=== PATIENT | male | born 1950 | race Caucasian/White ===

== ENCOUNTER 2020-04-11 12:54 | Inpatient (IN) | payer MEDICARE, MEDICAID ==
[~2020-04-11] VITALS: Ht 175.3 cm; Wt 100.4 kg
[2020-04-11] MEDS ORDERED: dexAMETHasone 10mg/ml Inj IV ONE (13:00)
--- NOTE | 2020-04-11 13:14 | Emergency Room Report ---
History of Present Illness General Chief Complaint: Dyspnea/Respdistress Source: Patient (German Lino MD) Present Illness HPI Disclaimer: Please note that this report is being documented using DRAGON technology. This can lead to erroneous entry secondary to incorrect interpretation by the dictating instrument. HPI: 70-year-old male presents for evaluation of shortness of breath from nursing facility. Recently diagnosed with COVID-19 on 04/05. Reportedly hypoxic in the mid 80s. Patient notes increased work of breathing, shortness of breath and cough. No fever reported. He does not have any advanced directives in place but states he does not want intubation until absolutely necessary and would like it discussed with him prior. Currently he is against intubation. He has a history of CAD status post stents, strokes, weakness. 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 EOMI. Cardiovascular: Tachycardia. S1 and S2 normal. No murmur appreciated Resp: Increased work of breathing. Accessory muscle use. 15 L nonrebreather Abdomen: Abdomen is soft, nondistended. Nontender Skin: Intact. No abrasions, laceration or rash over the exposed skin MSK: Normal tone and bulk. Moving all extremities. No obvious deformity. Neuro: Awake and alert. Mentating appropriately. GCS 15 (German Lino MD) Procedures Critical Care Time Critical Care Time Given the critical condition in which the patient arrived, the patient was immediately assessed by myself and the nurse, and cardiac monitoring initiated due to the potential for rapid decompensation of the patient's clinical condition. During the course of the patient's stay, I spent a considerable amount of time at the bedside performing serial re-evaluations of the patient's hemodynamic and clinical status because of the recognized potential threat to life or limb in this condition. I then had a chance to review not only all of the available current laboratory and radiographic studies obtained today, but I also reviewed old records available to me at the time. Additionally, any ancillary information available including education and training manager records were reviewed. Sequential vital signs were obtained. Critical Care time of 33 minutes was performed exclusive of billable procedures. (Dank Lantigua MD) Medical Decision Making Diagnostic Impression: Primary Impression: COVID-19 Additional Impressions: Respiratory failure Qualified Codes: J96.01 - Acute respiratory failure with hypoxia; J96.02 - Acute respiratory failure with hypercapnia MORIAH (acute kidney injury) ER Course This a 70-year-old male with history of CAD and prior stroke presenting from senior care facility for shortness of breath. Recently diagnosed with COVID -19. He is no longer hypoxic on 15 L nonrebreather but has accessory muscle use and increased work of breathing. I discussed intubation with patient however at this point he is adamantly refusing stating he would reevaluate if his condition deteriorated. Ordered broad labs including blood cultures, ABG, chest x-ray. The patient require admission. (German Lino MD) ER Course In short 70-year-old male presents in respiratory distress patient was brought in by EMS from snf, patient tachypneic, short of breath patient does not want intubation at this time, will start high flow oxygen and titrate to an SaO2 greater than 94. We will start Levaquin for pneumonia, patient has anaphylaxis to penicillins. Patient most likely with COVID pneumonia Decadron was given by previous doctor. Plan for admission and treatment Patient admitted to Dr. Chamorro in step down Laboratory Tests Test 04/11/20 13:12 04/11/20 13:20 Arterial Blood pH 7.298 (7.350-7.450) Arterial Blood Partial Pressure CO2 29.4 mmHg (35.0-45.0) L Arterial Blood Partial Pressure O2 79.6 mmHg (75.0-100.0) Arterial Blood HCO3 14.1 mmol/L (22.0-26.0) *L Arterial Blood Oxygen Saturation 94.1 % (95-100) L Arterial Blood Base Excess -10.8 (-2-2) *L Eliot Test Positive White Blood Count 6.2 K/UL (4.8-10.8) Red Blood Count 4.95 M/UL (4.70-6.10) Hemoglobin 15.2 G/DL (14.2-18.0) Hematocrit 46.8 % (42.0-52.0) Mean Corpuscular Volume 94 FL (80-99) Mean Corpuscular Hemoglobin 30.6 PG (27.0-31.0) Mean Corpuscular Hemoglobin Concent 32.4 G/DL (32.0-36.0) Red Cell Distribution Width 13.4 % (11.6-14.8) Platelet Count 117 K/UL (150-450) L Mean Platelet Volume 7.5 FL (6.5-10.1) Neutrophils (%) (Auto) % (45.0-75.0) Lymphocytes (%) (Auto) % (20.0-45.0) Monocytes (%) (Auto) % (1.0-10.0) Eosinophils (%) (Auto) % (0.0-3.0) Basophils (%) (Auto) % (0.0-2.0) Differential Total Cells Counted 100 Neutrophils % (Manual) 54 % (45-75) Lymphocytes % (Manual) 11 % (20-45) L Monocytes % (Manual) 24 % (1-10) H Eosinophils % (Manual) 1 % (0-3) Basophils % (Manual) 0 % (0-2) Band Neutrophils 10 % (0-8) H Platelet Estimate Decreased L Platelet Morphology Normal Red Blood Cell Morphology Normal Prothrombin Time 13.0 SEC (9.30-11.50) H Prothrombin Time INR 1.2 (0.9-1.1) H Activated Partial Thromboplast Time 27 SEC (23-33) D-Dimer 4.24 mg/L FEU (0.00-0.49) H Sodium Level 131 MMOL/L (136-145) L Potassium Level 5.0 MMOL/L (3.5-5.1) Chloride Level 91 MMOL/L (98-107) L Carbon Dioxide Level 17 MMOL/L (21-32) L Anion Gap 23 mmol/L (5-15) H Blood Urea Nitrogen 39 mg/dL (7-18) H Creatinine 1.3 MG/DL (0.55-1.30) Estimated Glomerular Filtration Rate 54.7 mL/min (>60) Glucose Level 408 MG/DL (74-106) H Lactic Acid Level 2.70 mmol/L (0.4-2.0) H Uric Acid 6.3 MG/DL (2.6-7.2) Calcium Level 8.8 MG/DL (8.5-10.1) Ferritin 476 NG/ML (8-388) H Total Bilirubin 0.9 MG/DL (0.2-1.0) Aspartate Amino Transferase (AST) 56 U/L (15-37) H Alanine Aminotransferase (ALT) 49 U/L (12-78) Alkaline Phosphatase 51 U/L (46-116) Lactate Dehydrogenase 595 U/L (81-234) H Total Creatine Kinase 337 U/L (26-308) H Creatine Kinase MB 3.0 NG/ML (0.0-3.6) Creatine Kinase MB Relative Index 0.8 Troponin I 0.000 ng/mL (0.000-0.056) C-Reactive Protein, Quantitative 41.5 mg/dL (0.00-0.90) H Total Protein 8.0 G/DL (6.4-8.2) Albumin 3.5 G/DL (3.4-5.0) Globulin 4.5 g/dL Albumin/Globulin Ratio 0.8 (1.0-2.7) L Microbiology Date/Time Source Procedure Growth Status 04/11/20 14:06 Nasopharynx SARS-CoV-2 RdRp Gene Assay - Final Complete (Dank Lantigua MD) EKG Diagnostic Results EKG Time: 13:51 EP Interpretation: Sinus tachycardia, rate 126, QTc 451, left axis deviation no acute ST eleva (Dank Lantigua MD) Rhythm Strip Diag. Results Rhythm Strip Time: 13:51 EP Interpretation: yes Rate: 126 Rhythm: other - Sinus tachycardia (Dank Lantigua MD) Chest X-Ray Diagnostic Results Chest X-Ray Diagnostic Results : Chest X-Ray Ordered: Yes # of Views/Limited/Complete: 1 View Indication: Shortness of Breath EP Interpretation: Yes Interpretation: other - Bilateral opacities Impression: Other - Bilateral opacities Electronically Signed by: Dank Lantigua MD (Dank Lantigua MD) Last Vital Signs Date Time Temp Pulse Resp B/P (MAP) Pulse Ox O2 Delivery O2 Flow Rate FiO2 04/11/20 12:41 99.1 130 22 126/73 (90) 7 Non-Rebreather 15.0 (German Lino MD) Disposition: ADMITTED INPATIENT Condition: Critical German Lino MD Apr 11, 2020 13:14 Dank Lantigua MD Apr 11, 2020 13:55
[2020-04-11] MEDS ORDERED: METOCLOPRAMIDE H5 M1 ORAL (13:24)
[2020-04-11] MEDS ORDERED: MELOXICAM7.5 MG PO (13:24)
[2020-04-11] MEDS ORDERED: BENADRYL25 MG ORAL (13:24)
[2020-04-11] MEDS ORDERED: ASPIR 8181 MG ORAL (13:24)
[2020-04-11] MEDS ORDERED: TRAMADOL HCL50 MG ORAL (13:24)
[2020-04-11] MEDS ORDERED: MAG-OXIDE400 M1 PO (13:24)
[2020-04-11] MEDS ORDERED: TRAZODONE HCL150 MG ORAL (13:24)
[2020-04-11] MEDS ORDERED: FLOMAX0.4 MG ORAL (13:24)
[2020-04-11] MEDS ORDERED: TUMS300 MG PO (13:24)
[2020-04-11] MEDS ORDERED: LOPERAMIDE2 MG PO (13:24)
[2020-04-11] MEDS ORDERED: ACETAMINOPHEN500 M3 ORAL (13:24)
[2020-04-11] MEDS ORDERED: FLONASE ALLERG9.9 ML NS (13:24)
[2020-04-11] MEDS ORDERED: AMITIZA24 MCG ORAL (13:24)
[2020-04-11] MEDS ORDERED: NOVOLIN R100 UNIT/1 SUBQ (13:24)
[2020-04-11] MEDS ORDERED: METHOTREXATE2.5 MG PO (13:24)
[2020-04-11] MEDS ORDERED: ZETIA10 MG ORAL (13:24)
[2020-04-11] MEDS ORDERED: LISINOPRIL5 MG ORAL (13:24)
[2020-04-11] MEDS ORDERED: MYRBETRIQ50 MG PO (13:24)
[2020-04-11] MEDS ORDERED: FENOFIBRATE48 MG ORAL (13:24)
[2020-04-11] MEDS ORDERED: GABAPENTIN100 MG ORAL (13:24)
[2020-04-11] MEDS ORDERED: LORATADINE10 M1 PO (13:24)
[2020-04-11] MEDS ORDERED: ERGOCALCIFEROL1 GM MC (13:24)
[2020-04-11 13:34] VITALS: BP 125/76
[2020-04-11] MEDS ORDERED: Albuterol/Ipratropium 3ml neb HHN PRN (14:00)
[2020-04-11] MEDS ORDERED: cefTRIAXone 1 GM in D5W 55 ML IVPB SCH (14:00)
[2020-04-11] MEDS ORDERED: Miralax 17gm pkt ORAL PRN (14:00)
[2020-04-11 14:06] LABS: HEMATOCRIT 46.8 % (42.0-52.0); HEMOGLOBIN 15.2 G/DL (14.2-18.0); MEAN CORPUSCULAR VOLUME 94 FL (80-99); PLATELET COUNT 117 K/UL (150-450); RED BLOOD COUNT 4.95 M/UL (4.70-6.10); RED CELL DISTRIBUTION WIDTH 13.4 % (11.6-14.8); WHITE BLOOD COUNT 6.2 K/UL (4.8-10.8)
[2020-04-11 14:15] LABS: INR 1.2 (0.9-1.1)
[2020-04-11 14:20] VITALS: BP 130/80
[2020-04-11 14:29] LABS: ANION GAP 23 mmol/L (5-15); BLOOD UREA NITROGEN 39 mg/dL (7-18); CALCIUM 8.8 MG/DL (8.5-10.1); CARBON DIOXIDE 17 MMOL/L (21-32); CHLORIDE 91 MMOL/L (98-107); CREATININE 1.3 MG/DL (0.55-1.30); SODIUM 131 MMOL/L (136-145)
--- NOTE | 2020-04-11 14:32 | Diagnostic Imaging Report ---
Procedure: XRAY Chest 1v Reason for study: Reason For Exam: SOB Comparison films: None. FINDINGS: Radiograph is underpenetrated. There is bilateral infiltrates right greater than left. Cardiac and mediastinal silhouette are within normal limits. No significant effusion seen. The bony thorax appear unremarkable. IMPRESSION: Bilateral infiltrates.
[2020-04-11 14:38] LABS: ALANINE AMINOTRANSFERASE 49 U/L (12-78); ALBUMIN 3.5 G/DL (3.4-5.0); ALBUMIN/GLOBULIN RATIO 0.8 (1.0-2.7); ALKALINE PHOSPHATASE 51 U/L (46-116); ASPARTATE AMINO TRANSFERASE 56 U/L (15-37); BILIRUBIN,TOTAL 0.9 MG/DL (0.2-1.0); CREATINE KINASE 337 U/L (26-308); FERRITIN 476 NG/ML (8-388)
[2020-04-11 16:00] VITALS: BP 109/59
[2020-04-11] MEDS ORDERED: Azithromycin 250 MG in D5W 275 ML IV SCH (18:00)
[2020-04-11] MEDS: NovoLOG Insulin Flexpen SUBQ SCH ×3 (18:45→22:25)
[2020-04-11 20:00] VITALS: BP 118/43
[2020-04-11] MEDS ORDERED: Heparin 5000 units/ml inj SUBQ SCH (21:00)
[2020-04-11] MEDS: guaiFENesin 100mg/5ml Liq ud ORAL PRN (22:24)
[2020-04-11] MEDS: Flonase Nasal Inhaler 16gm NASAL SCH (22:24)
[2020-04-12] VITALS (26 sets, daily range): BP systolic 101–215; BP diastolic 4–115
[2020-04-12] MEDS: NovoLOG Insulin Flexpen SUBQ SCH ×5 (01:00→22:36)
[2020-04-12] MEDS: guaiFENesin 100mg/5ml Liq ud ORAL PRN (03:42)
[2020-04-12 04:40] LABS: HEMATOCRIT 41.7 % (42.0-52.0); HEMOGLOBIN 13.8 G/DL (14.2-18.0); MEAN CORPUSCULAR VOLUME 93 FL (80-99); PLATELET COUNT 134 K/UL (150-450); RED BLOOD COUNT 4.47 M/UL (4.70-6.10); RED CELL DISTRIBUTION WIDTH 13.2 % (11.6-14.8); WHITE BLOOD COUNT 11.8 K/UL (4.8-10.8)
[2020-04-12 04:53] LABS: ALBUMIN 2.9 G/DL (3.4-5.0); ANION GAP 14 mmol/L (5-15); BLOOD UREA NITROGEN 51 mg/dL (7-18); CALCIUM 8.3 MG/DL (8.5-10.1); CARBON DIOXIDE 24 MMOL/L (21-32); CHLORIDE 96 MMOL/L (98-107); CREATININE 1.6 MG/DL (0.55-1.30); PHOSPHORUS 1.4 MG/DL (2.5-4.9); POTASSIUM 4.5 MMOL/L (3.5-5.1); SODIUM 134 MMOL/L (136-145)
[2020-04-12] MEDS ORDERED: NovoLOG Insulin Flexpen SUBQ SCH (06:30)
[2020-04-12] MEDS: Flonase Nasal Inhaler 16gm NASAL SCH (08:34)
[2020-04-12] MEDS ORDERED: Heparin 5000 units/ml inj SUBQ SCH (09:00)
--- NOTE | 2020-04-12 11:53 | History and Physical ---
History of Present Illness General Date patient seen: Apr 12, 2020 Reason for Hospitalization: Dyspnea/Respdistress Present Illness HPI 70-year-old male with hx of diabetes Mellitus, HtN, CVA, CAD, s/p stent, COVID positive [facility] shortness of breath. Patient was hypoxic in the mid 80s and had increased work of breathing , shortness of breath and cough. No fever reported. Allergies: Coded Allergies: CODEINE (Verified Allergy, Unknown, 04/11/20) PENICILLINS (Verified Allergy, Unknown, 04/11/20) Uncoded Allergies: SULFA (Allergy, Unknown, 04/11/20) COVID-19 Screening Contact w/high risk pt: Yes Experienced COVID-19 symptoms?: Yes COVID-19 symptoms experienced: Shortness of Breath Medication History Scheduled Acetaminophen* (Acetaminophen Extra Strength*), 1,000 MG ORAL Q4H, (Reported) Aspirin* (Aspir 81*), 81 MG ORAL DAILY, (Reported) Ezetimibe (Zetia*), 10 MG ORAL DAILY, (Reported) Fenofibrate Nanocrystallized (Fenofibrate), 48 MG ORAL DAILY, (Reported) Gabapentin* (Gabapentin*), 600 MG ORAL THREE TIMES A DAY, (Reported) Insulin Regular, Human* (Novolin R*), 0 SUBQ .SLIDING SCALE, (Reported) Lisinopril (Lisinopril*), 5 MG ORAL DAILY, (Reported) Lubiprostone (Amitiza*), 8 MCG ORAL EVERY 12 HOURS, (Reported) Magnesium Oxide (Mag-Oxide), 400 MG PO DAILY, (Reported) Meloxicam* (Meloxicam*), 7.5 MG PO DAILY, (Reported) Metoclopramide Hcl* (Metoclopramide Hcl*), 25 MG ORAL EVERY 6 HOURS, (Reported) Tamsulosin HCl (Flomax), 0.4 MG ORAL DAILY, (Reported) Trazodone* (Trazodone*), 100 MG ORAL BEDTIME, (Reported) Scheduled PRN Diphenhydramine Hcl* (Benadryl*), 25 MG ORAL Q6H PRN for Itching, (Reported) Tramadol Hcl* (Ultram*), 50 MG ORAL Q4H PRN for For Pain, (Reported) Miscellaneous Medications Calcium Carbonate (Tums), 500 MG PO, (Reported) Ergocalciferol (Vitamin D2) (Ergocalciferol), 50,000 UNITS MC, (Reported) Fluticasone Propionate (Flonase Allergy Relief), 9.9 ML NS, (Reported) Loperamide Hcl (Loperamide), 2 MG PO, (Reported) Loratadine (Loratadine), 10 MG PO, (Reported) Methotrexate Sodium* (Methotrexate*), 2.5 MG PO, (Reported) Mirabegron (Myrbetriq), 50 MG PO, (Reported) Patient History Healthcare decision maker Resuscitation status Advanced Directive on File Past Medical/Surgical History Past Medical/Surgical History: (1) Hx of heart artery stent (2) History of CVA (cerebrovascular accident) (3) History of hypertension (4) Diabetes mellitus Review of Systems All Other Systems: negative except mentioned in HPI Physical Exam General Appearance: WD/WN, alert Lines, tubes and drains: peripheral HEENT: normocephalic, atraumatic, anicteric Neck: non-tender, normal alignment, supple Respiratory/Chest: chest wall non-tender, rhonchi - left, rhonchi - right Cardiovascular/Chest: normal peripheral pulses Abdomen: normal bowel sounds, non tender Genitourinary/Rectal: normal genital exam Extremities: normal range of motion Neurologic: mental retardation nurse II-XII grossly normal Last 24 Hour Vital Signs Date Time Temp Pulse Resp B/P (MAP) Pulse Ox O2 Delivery O2 Flow Rate FiO2 04/12/20 11:18 92 High Flow 60.0 100 04/12/20 08:00 60.0 100 04/12/20 08:00 Nasal Cannula 15.0 04/12/20 08:00 97.5 112 26 147/82 (103) 91 04/12/20 07:47 132 04/12/20 06:30 81 High Flow 60.0 100 04/12/20 04:00 60.0 100 04/12/20 04:00 Nasal Cannula 15.0 04/12/20 04:00 97.6 112 30 159/70 (99) 90 04/12/20 03:34 109 04/12/20 03:16 90 High Flow 60.0 100 04/12/20 00:00 97.5 108 30 132/54 (80) 90 04/12/20 00:00 109 04/12/20 00:00 Nasal Cannula 15.0 04/11/20 23:06 89 High Flow 60.0 100 04/11/20 20:00 98.0 124 30 118/43 (68) 90 04/11/20 20:00 60.0 100 04/11/20 20:00 Nasal Cannula 15.0 04/11/20 19:38 121 04/11/20 19:34 90 High Flow 60.0 100 04/11/20 16:00 60.0 100 04/11/20 16:00 97.1 112 22 109/59 (76) 94 04/11/20 16:00 126 04/11/20 15:49 Cool Aerosol 04/11/20 15:42 92 High Flow 60.0 100 04/11/20 15:40 99.5 116 25 126/79 95 100 04/11/20 14:20 99.8 118 22 130/80 95 Non-Rebreather 100 04/11/20 14:17 92 High Flow 100 04/11/20 13:34 99.1 130 23 125/76 95 Non-Rebreather 15.0 04/11/20 13:34 130 23 Non-Rebreather 15.0 95 04/11/20 12:41 99.1 130 22 126/73 (90) 7 Non-Rebreather 15.0 Intake and Output 04/11/20 04/12/20 19:00 07:00 Intake Total 1100 ml 2155 ml Balance 1100 ml 2155 ml Intake Oral 260 ml IV Total 1100 ml 1895 ml # Voids 1 2 # Bowel Movements 2 Laboratory Tests Test 04/11/20 13:12 04/11/20 13:20 04/11/20 17:48 04/11/20 20:17 Arterial Blood pH 7.298 (7.350-7.450) Arterial Blood Partial Pressure CO2 29.4 mmHg (35.0-45.0) L Arterial Blood Partial Pressure O2 79.6 mmHg (75.0-100.0) Arterial Blood HCO3 14.1 mmol/L (22.0-26.0) *L Arterial Blood Oxygen Saturation 94.1 % (95-100) L Arterial Blood Base Excess -10.8 (-2-2) *L Eliot Test Positive White Blood Count 6.2 K/UL (4.8-10.8) Red Blood Count 4.95 M/UL (4.70-6.10) Hemoglobin 15.2 G/DL (14.2-18.0) Hematocrit 46.8 % (42.0-52.0) Mean Corpuscular Volume 94 FL (80-99) Mean Corpuscular Hemoglobin 30.6 PG (27.0-31.0) Mean Corpuscular Hemoglobin Concent 32.4 G/DL (32.0-36.0) Red Cell Distribution Width 13.4 % (11.6-14.8) Platelet Count 117 K/UL (150-450) L Mean Platelet Volume 7.5 FL (6.5-10.1) Neutrophils (%) (Auto) % (45.0-75.0) Lymphocytes (%) (Auto) % (20.0-45.0) Monocytes (%) (Auto) % (1.0-10.0) Eosinophils (%) (Auto) % (0.0-3.0) Basophils (%) (Auto) % (0.0-2.0) Differential Total Cells Counted 100 Neutrophils % (Manual) 54 % (45-75) Lymphocytes % (Manual) 11 % (20-45) L Monocytes % (Manual) 24 % (1-10) H Eosinophils % (Manual) 1 % (0-3) Basophils % (Manual) 0 % (0-2) Band Neutrophils 10 % (0-8) H Platelet Estimate Decreased L Platelet Morphology Normal Red Blood Cell Morphology Normal Prothrombin Time 13.0 SEC (9.30-11.50) H Prothromb Time International Ratio 1.2 (0.9-1.1) H Activated Partial Thromboplast Time 27 SEC (23-33) D-Dimer 4.24 mg/L FEU (0.00-0.49) H Sodium Level 131 MMOL/L (136-145) L Potassium Level 5.0 MMOL/L (3.5-5.1) Chloride Level 91 MMOL/L (98-107) L Carbon Dioxide Level 17 MMOL/L (21-32) L Anion Gap 23 mmol/L (5-15) H Blood Urea Nitrogen 39 mg/dL (7-18) H Creatinine 1.3 MG/DL (0.55-1.30) Estimat Glomerular Filtration Rate 54.7 mL/min (>60) Glucose Level 408 MG/DL (74-106) H Lactic Acid Level 2.70 mmol/L (0.4-2.0) H Uric Acid 6.3 MG/DL (2.6-7.2) Calcium Level 8.8 MG/DL (8.5-10.1) Ferritin 476 NG/ML (8-388) H Total Bilirubin 0.9 MG/DL (0.2-1.0) Aspartate Amino Transf (AST/SGOT) 56 U/L (15-37) H Alanine Aminotransferase (ALT/SGPT) 49 U/L (12-78) Alkaline Phosphatase 51 U/L (46-116) Lactate Dehydrogenase 595 U/L (81-234) H Total Creatine Kinase 337 U/L (26-308) H Creatine Kinase MB 3.0 NG/ML (0.0-3.6) Creatine Kinase MB Relative Index 0.8 Troponin I 0.000 ng/mL (0.000-0.056) C-Reactive Protein, Quantitative 41.5 mg/dL (0.00-0.90) H Total Protein 8.0 G/DL (6.4-8.2) Albumin 3.5 G/DL (3.4-5.0) Globulin 4.5 g/dL Albumin/Globulin Ratio 0.8 (1.0-2.7) L POC Whole Blood Glucose 441 MG/DL (74-106) H Pending Test 04/11/20 21:30 04/11/20 22:21 04/11/20 23:46 04/12/20 00:47 Lactic Acid Level 2.00 mmol/L (0.66-2.22) POC Whole Blood Glucose 487 MG/DL (74-106) H Pending 380 MG/DL (74-106) H Test 04/12/20 02:19 04/12/20 03:30 04/12/20 05:27 04/12/20 06:42 POC Whole Blood Glucose Pending 277 MG/DL (74-106) H White Blood Count 11.8 K/UL (4.8-10.8) #H Red Blood Count 4.47 M/UL (4.70-6.10) L Hemoglobin 13.8 G/DL (14.2-18.0) L Hematocrit 41.7 % (42.0-52.0) L Mean Corpuscular Volume 93 FL (80-99) Mean Corpuscular Hemoglobin 30.8 PG (27.0-31.0) Mean Corpuscular Hemoglobin Concent 33.0 G/DL (32.0-36.0) Red Cell Distribution Width 13.2 % (11.6-14.8) Platelet Count 134 K/UL (150-450) L Mean Platelet Volume 7.7 FL (6.5-10.1) Neutrophils (%) (Auto) % (45.0-75.0) Lymphocytes (%) (Auto) % (20.0-45.0) Monocytes (%) (Auto) % (1.0-10.0) Eosinophils (%) (Auto) % (0.0-3.0) Basophils (%) (Auto) % (0.0-2.0) Sodium Level 134 MMOL/L (136-145) L Potassium Level 4.5 MMOL/L (3.5-5.1) Chloride Level 96 MMOL/L (98-107) L Carbon Dioxide Level 24 MMOL/L (21-32) Anion Gap 14 mmol/L (5-15) Blood Urea Nitrogen 51 mg/dL (7-18) H Creatinine 1.6 MG/DL (0.55-1.30) H Estimat Glomerular Filtration Rate 43.1 mL/min (>60) Glucose Level 287 MG/DL (74-106) #H Uric Acid Pending Calcium Level 8.3 MG/DL (8.5-10.1) L Phosphorus Level 1.4 MG/DL (2.5-4.9) L Total Creatine Kinase Pending Albumin 2.9 G/DL (3.4-5.0) L Arterial Blood pH 7.350 (7.350-7.450) Arterial Blood Partial Pressure CO2 37.6 mmHg (35.0-45.0) Arterial Blood Partial Pressure O2 43.2 mmHg (75.0-100.0) Arterial Blood HCO3 20.5 mmol/L (22.0-26.0) L Arterial Blood Oxygen Saturation 80.2 % (95-100) *L Arterial Blood Base Excess -4.4 (-2-2) L Eliot Test Positive Microbiology Date/Time Source Procedure Growth Status 04/11/20 14:06 Nasopharynx SARS-CoV-2 RdRp Gene Assay - Final Complete 04/11/20 13:56 Rectum Received Height (Feet): 5 Height (Inches): 9.00 Weight (Pounds): 218 Medications Current Medications Medications (Trade) Dose Ordered Sig/Lopez Route PRN Reason Start Time Stop Time Status Last Admin Dose Admin Acetaminophen (Tylenol) 650 mg Q4H PRN ORAL FEVER 04/11/20 14:00 05/11/20 13:59 Albuterol/ Ipratropium (Albuterol/ Ipratropium) 3 ml Q4H PRN HHN Shortness of Breath 04/11/20 14:00 04/16/20 13:59 Aspirin (Ecotrin) 81 mg DAILY ORAL 04/13/20 09:00 05/28/20 08:59 UNV Azithromycin 250 mg/Dextrose 275 ml @ 275 mls/hr Q24HRS IV 04/11/20 18:00 04/16/20 17:59 04/11/20 18:23 Dexamethasone (Decadron) 4 mg DAILY ORAL 04/12/20 09:00 05/12/20 08:59 04/12/20 08:34 Dextrose (Dextrose 50%) 25 ml Q30M PRN IV Hypoglycemia 04/11/20 20:45 07/10/20 20:44 Dextrose (Dextrose 50%) 50 ml Q30M PRN IV Hypoglycemia 04/11/20 20:45 07/10/20 20:44 Fluticasone Propionate (Flonase) 1 spray TWICE A DAY NASAL 04/11/20 22:00 05/11/20 21:59 04/12/20 08:34 Gabapentin (Neurontin) 600 mg THREE TIMES A DAY ORAL 04/12/20 13:00 05/12/20 12:59 UNV Guaifenesin (Robitussin) 100 mg Q4H PRN ORAL For Cough 04/11/20 20:45 07/10/20 20:44 04/12/20 03:42 Heparin Sodium (Porcine) (Heparin 5000 units/ml) 5,000 units EVERY 12 HOURS SUBQ 04/12/20 09:00 05/26/20 20:59 04/12/20 08:34 Insulin Aspart (NovoLOG) BEFORE MEALS AND HS SUBQ 04/12/20 12:00 07/10/20 20:59 Ondansetron HCl (Zofran) 4 mg Q6H PRN IVP Nausea & Vomiting 04/11/20 14:00 05/11/20 13:59 Polyethylene Glycol (Miralax) 17 gm DAILYPRN PRN ORAL Constipation 04/11/20 14:00 05/11/20 13:59 Sodium Chloride 1,000 ml @ 150 mls/hr Q6H40M IV 04/11/20 17:06 05/11/20 17:05 04/12/20 06:11 Sodium Phosphate 30 mm/Sodium Chloride 285 ml @ 47.5 mls/hr ONCE ONCE IV 04/12/20 12:45 04/12/20 18:44 UNV Tamsulosin HCl (Flomax) 0.4 mg DAILY ORAL 04/13/20 09:00 05/13/20 08:59 UNV Trazodone HCl (Desyrel) 100 mg BEDTIME ORAL 04/12/20 21:00 05/12/20 20:59 UNV Assessment/Plan Problem List: (1) Acute respiratory failure ICD Codes: J96.00 - Acute respiratory failure, unspecified whether with hypoxia or hypercapnia SNOMED: 06812344 (2) Pneumonia due to COVID-19 virus ICD Codes: U07.1 - COVID-19; J12.89 - Other viral pneumonia SNOMED: 418678740, 937039062 (3) MORIAH (acute kidney injury) ICD Codes: N17.9 - Acute kidney failure, unspecified SNOMED: 79054944, 0031229 (4) History of hypertension ICD Codes: Z86.79 - Personal history of other diseases of the circulatory system SNOMED: 731166126 (5) History of CVA (cerebrovascular accident) ICD Codes: Z86.73 - Personal history of transient ischemic attack (TIA), and cerebral infarction without residual deficits SNOMED: 982792528 (6) Diabetes mellitus ICD Codes: E11.9 - Type 2 diabetes mellitus without complications SNOMED: 42356482 Assessment/Plan: respiratory isolation respiratory treatment continue High flow titrate fio2 to sat of 92% sliding scale diabetic diet monitor BP echocardiogram CXR reviewed/ CRP >40, follow up the trend Pt needs Decadron and antiviral Deidre Chamorro MD Apr 12, 2020 11:53
[2020-04-12 12:02] LABS: CREATINE KINASE 216 U/L (26-308)
[2020-04-12] MEDS ORDERED: dilTIAZem HCl 25mg/5ml Inj IVP SCH (13:00)
[2020-04-12] MEDS ORDERED: Labetalol 5mg/ml 20ml vial IV PRN ×2 (13:00→19:00)
[2020-04-12] MEDS ORDERED: Tamsulosin 0.4mg cap ORAL SCH (13:00)
[2020-04-12] MEDS ORDERED: Enalaprilat 2.5mg/2ml Inj IV PRN ×2 (13:00→19:00)
--- NOTE | 2020-04-12 13:33 | Consultation ---
History of Present Illness General Date patient seen: Apr 12, 2020 Chief Complaint: Dyspnea/Respdistress Present Illness HPI 70 y/o M with with hx of HTN, Dm2, CAD s/p stent, CVA, recent diagnosis of COVID19 (04/05), [place] resident presented to ED on 04/11 with hypoxia on the mid 80s , increased work of breathing, SOB, cough. Patient was on HF 100%, desaturated and was transferred to ICU. Now on Bipap. ALso developed Afib with RVR Denied fever Allergies: Coded Allergies: CODEINE (Verified Allergy, Unknown, 04/11/20) PENICILLINS (Verified Allergy, Unknown, 04/11/20) Uncoded Allergies: SULFA (Allergy, Unknown, 04/11/20) Medication History Scheduled Acetaminophen* (Acetaminophen Extra Strength*), 1,000 MG ORAL Q4H, (Reported) Aspirin* (Aspir 81*), 81 MG ORAL DAILY, (Reported) Ezetimibe (Zetia*), 10 MG ORAL DAILY, (Reported) Fenofibrate Nanocrystallized (Fenofibrate), 48 MG ORAL DAILY, (Reported) Gabapentin* (Gabapentin*), 600 MG ORAL THREE TIMES A DAY, (Reported) Insulin Regular, Human* (Novolin R*), 0 SUBQ .SLIDING SCALE, (Reported) Lisinopril (Lisinopril*), 5 MG ORAL DAILY, (Reported) Lubiprostone (Amitiza*), 8 MCG ORAL EVERY 12 HOURS, (Reported) Magnesium Oxide (Mag-Oxide), 400 MG PO DAILY, (Reported) Meloxicam* (Meloxicam*), 7.5 MG PO DAILY, (Reported) Metoclopramide Hcl* (Metoclopramide Hcl*), 25 MG ORAL EVERY 6 HOURS, (Reported) Tamsulosin HCl (Flomax), 0.4 MG ORAL DAILY, (Reported) Trazodone* (Trazodone*), 100 MG ORAL BEDTIME, (Reported) Scheduled PRN Diphenhydramine Hcl* (Benadryl*), 25 MG ORAL Q6H PRN for Itching, (Reported) Tramadol Hcl* (Ultram*), 50 MG ORAL Q4H PRN for For Pain, (Reported) Miscellaneous Medications Calcium Carbonate (Tums), 500 MG PO, (Reported) Ergocalciferol (Vitamin D2) (Ergocalciferol), 50,000 UNITS , (Reported) Fluticasone Propionate (Flonase Allergy Relief), 9.9 ML NS, (Reported) Loperamide Hcl (Loperamide), 2 MG PO, (Reported) Loratadine (Loratadine), 10 MG PO, (Reported) Methotrexate Sodium* (Methotrexate*), 2.5 MG PO, (Reported) Mirabegron (Myrbetriq), 50 MG PO, (Reported) Patient History Healthcare decision maker Resuscitation status Advanced Directive on File Patient History Narrative Pmhx: as above Shx: reviewed Fhx: non contributory Review of Systems All Other Systems: negative except mentioned in HPI Physical Exam Physical Exam Narrative General Appearance: WD/WN, alert Lines, tubes and drains: peripheral HEENT: normocephalic, atraumatic, anicteric Neck: non-tender, normal alignment, supple Respiratory/Chest: chest wall non-tender, rhonchi - left, rhonchi - right Cardiovascular/Chest: normal peripheral pulses Abdomen: normal bowel sounds, non tender Extremities: normal range of motion 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 Last 24 Hour Vital Signs Date Time Temp Pulse Resp B/P (MAP) Pulse Ox O2 Delivery O2 Flow Rate FiO2 04/12/20 12:55 180 26 215/115 (148) 83 04/12/20 12:00 119 04/12/20 11:18 92 High Flow 60.0 100 04/12/20 08:00 60.0 100 04/12/20 08:00 Nasal Cannula 15.0 04/12/20 08:00 97.5 112 26 147/82 (103) 91 04/12/20 07:47 132 04/12/20 06:30 81 High Flow 60.0 100 04/12/20 04:00 60.0 100 04/12/20 04:00 Nasal Cannula 15.0 04/12/20 04:00 97.6 112 30 159/70 (99) 90 04/12/20 03:34 109 04/12/20 03:16 90 High Flow 60.0 100 04/12/20 00:00 97.5 108 30 132/54 (80) 90 04/12/20 00:00 109 04/12/20 00:00 Nasal Cannula 15.0 04/11/20 23:06 89 High Flow 60.0 100 04/11/20 20:00 98.0 124 30 118/43 (68) 90 04/11/20 20:00 60.0 100 04/11/20 20:00 Nasal Cannula 15.0 04/11/20 19:38 121 04/11/20 19:34 90 High Flow 60.0 100 04/11/20 16:00 60.0 100 04/11/20 16:00 97.1 112 22 109/59 (76) 94 04/11/20 16:00 126 04/11/20 15:49 Cool Aerosol 04/11/20 15:42 92 High Flow 60.0 100 04/11/20 15:40 99.5 116 25 126/79 95 100 04/11/20 14:20 99.8 118 22 130/80 95 Non-Rebreather 100 04/11/20 14:17 92 High Flow 100 04/11/20 13:34 99.1 130 23 125/76 95 Non-Rebreather 15.0 04/11/20 13:34 130 23 Non-Rebreather 15.0 95 Intake and Output 04/11/20 04/12/20 19:00 07:00 Intake Total 1100 ml 2155 ml Balance 1100 ml 2155 ml Intake Oral 260 ml IV Total 1100 ml 1895 ml # Voids 1 2 # Bowel Movements 2 Laboratory Tests Test 04/11/20 13:12 04/11/20 13:20 04/11/20 17:48 04/11/20 20:17 Arterial Blood pH 7.298 (7.350-7.450) Arterial Blood Partial Pressure CO2 29.4 mmHg (35.0-45.0) L Arterial Blood Partial Pressure O2 79.6 mmHg (75.0-100.0) Arterial Blood HCO3 14.1 mmol/L (22.0-26.0) *L Arterial Blood Oxygen Saturation 94.1 % (95-100) L Arterial Blood Base Excess -10.8 (-2-2) *L Eliot Test Positive White Blood Count 6.2 K/UL (4.8-10.8) Red Blood Count 4.95 M/UL (4.70-6.10) Hemoglobin 15.2 G/DL (14.2-18.0) Hematocrit 46.8 % (42.0-52.0) Mean Corpuscular Volume 94 FL (80-99) Mean Corpuscular Hemoglobin 30.6 PG (27.0-31.0) Mean Corpuscular Hemoglobin Concent 32.4 G/DL (32.0-36.0) Red Cell Distribution Width 13.4 % (11.6-14.8) Platelet Count 117 K/UL (150-450) L Mean Platelet Volume 7.5 FL (6.5-10.1) Neutrophils (%) (Auto) % (45.0-75.0) Lymphocytes (%) (Auto) % (20.0-45.0) Monocytes (%) (Auto) % (1.0-10.0) Eosinophils (%) (Auto) % (0.0-3.0) Basophils (%) (Auto) % (0.0-2.0) Differential Total Cells Counted 100 Neutrophils % (Manual) 54 % (45-75) Lymphocytes % (Manual) 11 % (20-45) L Monocytes % (Manual) 24 % (1-10) H Eosinophils % (Manual) 1 % (0-3) Basophils % (Manual) 0 % (0-2) Band Neutrophils 10 % (0-8) H Platelet Estimate Decreased L Platelet Morphology Normal Red Blood Cell Morphology Normal Prothrombin Time 13.0 SEC (9.30-11.50) H Prothromb Time International Ratio 1.2 (0.9-1.1) H Activated Partial Thromboplast Time 27 SEC (23-33) D-Dimer 4.24 mg/L FEU (0.00-0.49) H Sodium Level 131 MMOL/L (136-145) L Potassium Level 5.0 MMOL/L (3.5-5.1) Chloride Level 91 MMOL/L (98-107) L Carbon Dioxide Level 17 MMOL/L (21-32) L Anion Gap 23 mmol/L (5-15) H Blood Urea Nitrogen 39 mg/dL (7-18) H Creatinine 1.3 MG/DL (0.55-1.30) Estimat Glomerular Filtration Rate 54.7 mL/min (>60) Glucose Level 408 MG/DL (74-106) H Lactic Acid Level 2.70 mmol/L (0.4-2.0) H Uric Acid 6.3 MG/DL (2.6-7.2) Calcium Level 8.8 MG/DL (8.5-10.1) Ferritin 476 NG/ML (8-388) H Total Bilirubin 0.9 MG/DL (0.2-1.0) Aspartate Amino Transf (AST/SGOT) 56 U/L (15-37) H Alanine Aminotransferase (ALT/SGPT) 49 U/L (12-78) Alkaline Phosphatase 51 U/L (46-116) Lactate Dehydrogenase 595 U/L (81-234) H Total Creatine Kinase 337 U/L (26-308) H Creatine Kinase MB 3.0 NG/ML (0.0-3.6) Creatine Kinase MB Relative Index 0.8 Troponin I 0.000 ng/mL (0.000-0.056) C-Reactive Protein, Quantitative 41.5 mg/dL (0.00-0.90) H Total Protein 8.0 G/DL (6.4-8.2) Albumin 3.5 G/DL (3.4-5.0) Globulin 4.5 g/dL Albumin/Globulin Ratio 0.8 (1.0-2.7) L POC Whole Blood Glucose 441 MG/DL (74-106) H Pending Test 04/11/20 21:30 04/11/20 22:21 04/11/20 23:46 04/12/20 00:47 Lactic Acid Level 2.00 mmol/L (0.66-2.22) POC Whole Blood Glucose 487 MG/DL (74-106) H Pending 380 MG/DL (74-106) H Test 04/12/20 02:19 04/12/20 03:30 04/12/20 05:27 04/12/20 06:42 POC Whole Blood Glucose Pending 277 MG/DL (74-106) H White Blood Count 11.8 K/UL (4.8-10.8) #H Red Blood Count 4.47 M/UL (4.70-6.10) L Hemoglobin 13.8 G/DL (14.2-18.0) L Hematocrit 41.7 % (42.0-52.0) L Mean Corpuscular Volume 93 FL (80-99) Mean Corpuscular Hemoglobin 30.8 PG (27.0-31.0) Mean Corpuscular Hemoglobin Concent 33.0 G/DL (32.0-36.0) Red Cell Distribution Width 13.2 % (11.6-14.8) Platelet Count 134 K/UL (150-450) L Mean Platelet Volume 7.7 FL (6.5-10.1) Neutrophils (%) (Auto) % (45.0-75.0) Lymphocytes (%) (Auto) % (20.0-45.0) Monocytes (%) (Auto) % (1.0-10.0) Eosinophils (%) (Auto) % (0.0-3.0) Basophils (%) (Auto) % (0.0-2.0) Sodium Level 134 MMOL/L (136-145) L Potassium Level 4.5 MMOL/L (3.5-5.1) Chloride Level 96 MMOL/L (98-107) L Carbon Dioxide Level 24 MMOL/L (21-32) Anion Gap 14 mmol/L (5-15) Blood Urea Nitrogen 51 mg/dL (7-18) H Creatinine 1.6 MG/DL (0.55-1.30) H Estimat Glomerular Filtration Rate 43.1 mL/min (>60) Glucose Level 287 MG/DL (74-106) #H Uric Acid 7.7 MG/DL (2.6-7.2) H Calcium Level 8.3 MG/DL (8.5-10.1) L Phosphorus Level 1.4 MG/DL (2.5-4.9) L Total Creatine Kinase 216 U/L (26-308) Albumin 2.9 G/DL (3.4-5.0) L Arterial Blood pH 7.350 (7.350-7.450) Arterial Blood Partial Pressure CO2 37.6 mmHg (35.0-45.0) Arterial Blood Partial Pressure O2 43.2 mmHg (75.0-100.0) Arterial Blood HCO3 20.5 mmol/L (22.0-26.0) L Arterial Blood Oxygen Saturation 80.2 % (95-100) *L Arterial Blood Base Excess -4.4 (-2-2) L Eliot Test Positive Test 04/12/20 12:21 POC Whole Blood Glucose 359 MG/DL (74-106) H Microbiology Date/Time Source Procedure Growth Status 04/11/20 14:06 Nasopharynx SARS-CoV-2 RdRp Gene Assay - Final Complete 04/11/20 13:56 Rectum Received Height (Feet): 5 Height (Inches): 9.00 Weight (Pounds): 218 Medications Current Medications Medications (Trade) Dose Ordered Sig/Lopez Route PRN Reason Start Time Stop Time Status Last Admin Dose Admin Acetaminophen (Tylenol) 650 mg Q4H PRN ORAL FEVER 04/11/20 14:00 05/11/20 13:59 Albuterol/ Ipratropium (Albuterol/ Ipratropium) 3 ml Q4H PRN HHN Shortness of Breath 04/11/20 14:00 04/16/20 13:59 Aspirin (Ecotrin) 81 mg DAILY ORAL 04/13/20 09:00 05/28/20 08:59 Azithromycin 250 mg/Dextrose 275 ml @ 275 mls/hr Q24HRS IV 04/11/20 18:00 04/16/20 17:59 04/11/20 18:23 Dexamethasone (Decadron) 4 mg DAILY ORAL 04/12/20 09:00 05/12/20 08:59 04/12/20 08:34 Dextrose (Dextrose 50%) 25 ml Q30M PRN IV Hypoglycemia 04/11/20 20:45 07/10/20 20:44 Dextrose (Dextrose 50%) 50 ml Q30M PRN IV Hypoglycemia 04/11/20 20:45 07/10/20 20:44 Diltiazem HCl (Cardizem) 10 mg ONCE IVP 04/12/20 13:00 04/12/20 14:00 Enalaprilat (Vasotec) 2.5 mg Q4H PRN IV sbp more than 200 04/12/20 13:00 05/12/20 12:59 Fluticasone Propionate (Flonase) 1 spray TWICE A DAY NASAL 04/11/20 22:00 05/11/20 21:59 04/12/20 08:34 Gabapentin (Neurontin) 600 mg THREE TIMES A DAY ORAL 04/12/20 13:00 05/12/20 12:59 Guaifenesin (Robitussin) 100 mg Q4H PRN ORAL For Cough 04/11/20 20:45 07/10/20 20:44 04/12/20 03:42 Heparin Sodium (Porcine) (Heparin 5000 units/ml) 5,000 units EVERY 12 HOURS SUBQ 04/12/20 09:00 05/26/20 20:59 04/12/20 08:34 Hydralazine HCl (Apresoline) 20 mg Q4H PRN IV sbp more than 160 04/12/20 13:00 07/11/20 12:59 Insulin Aspart (NovoLOG) BEFORE MEALS AND HS SUBQ 04/12/20 12:00 07/10/20 20:59 Labetalol HCl (Normodyne) 20 mg Q1H PRN IV sbo more than 180 04/12/20 13:00 05/12/20 12:59 Ondansetron HCl (Zofran) 4 mg Q6H PRN IVP Nausea & Vomiting 04/11/20 14:00 05/11/20 13:59 Polyethylene Glycol (Miralax) 17 gm DAILYPRN PRN ORAL Constipation 04/11/20 14:00 05/11/20 13:59 Sodium Chloride 1,000 ml @ 150 mls/hr Q6H40M IV 04/11/20 17:06 05/11/20 17:05 04/12/20 06:11 Sodium Phosphate 30 mm/Sodium Chloride 285 ml @ 47.5 mls/hr ONCE ONCE IV 04/12/20 14:00 04/12/20 19:59 Tamsulosin HCl (Flomax) 0.4 mg DAILY ORAL 04/12/20 13:00 05/12/20 12:59 Trazodone HCl (Desyrel) 100 mg BEDTIME ORAL 04/12/20 21:00 05/12/20 20:59 Assessment/Plan Assessment/Plan: Abx: Ceftriaxone x1 04/11 Azithromycin 04/11- Levaquin x1 04/11 Assessment: COVID19 pneumonia Acute hypoxic resp failure- on HF 60L, FIo2 100%> Bipap 100% 04/12 -04/11 D-dimer 4.24, LDH 595, ferritin 476, CRP 41.5 rapid COVID PCR + CXR: Bilateral infiltrates. Afebrile Mild leukocytosis Thrombocytopenia Lactic acidosis, SP MORIAH Elevated AST HTN Dm2 CAD s/p stent CVA [place] resident ([facility]) Plan: -Continue Ceftriaxone #2 and Azithromycin #2 -Decadron #2/10 -Start Remdesevir per protocol -Would like to start Tocilizumab- request sent to COVID19 committee; awaiting approval and availability -f/u cx -Monitor CBC/CMP, temperatures -COVID19 isolation and testing -Monitor inflammatory markers and CXR -ICU care Thank you for this consultation. Will continue to follow along with you. Discussed with LILLY. Sharyn Petersen M.D. Apr 12, 2020 13:33
[2020-04-12] MEDS ORDERED: Remdesivir Fact Sheet MISC SCH (14:00)
[2020-04-12] MEDS ORDERED: Sodium Phosphate 30 MM in NS 275 ML IV ONE (14:00)
[2020-04-12] MEDS ORDERED: Amiodarone 900 MG in D5W 500ml 482 ML IV SCH (15:00)
--- NOTE | 2020-04-12 16:30 | Consultation ---
Consult Note Consult Note I am asked to evaluate the patient at the request of Dr. Chamroro for rising serum creatinine Patient seen in ICU Chief Complaint: Dyspnea/Respdistress HPI: 70-year-old male presents for evaluation of shortness of breath from nursing facility. Recently diagnosed with COVID-19 on 04/05. Reportedly hypoxic in the mid 80s. Patient notes increased work of breathing, shortness of breath and cough. No fever reported. He does not have any advanced directives in place but states he does not want intubation until absolutely necessary and would like it discussed with him prior. Currently he is against intubation. He has a history of CAD status post stents, strokes, weakness. 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 Assessment/Plan MORIAH, multifactorial, most likely primarily due to sepsis. Serum creatinine up to 1.6 COVID-19 pneumonia, acute respiratory failure. Lactic acidosis, mild leukocytosis, thrombocytopenia, Elevated liver enzymes History of diabetes History of hypertension History of coronary artery disease status post stent placement CVA Lives in a residential Suggestions: Brown catheter Antibiotics, avoid nephrotoxic's Decadron, Remdesevir, further management per ID Monitor renal parameters Hydration Per orders I spent an additional 36 minutes on review of medical records including prior hospital records,consult notes, progress notes, procedures ,imaging labs, hemodynamics, and other clinical documentation. Over 35 min Carlos Underwood MD Apr 12, 2020 16:30
[2020-04-12] MEDS ORDERED: IV Preparation Fee MISC PRN (17:00)
[2020-04-12] MEDS ORDERED: Loading Dose:Remdesivir 200mg/NS 210ml IV SCH ×2 (17:00)
[2020-04-12 17:37] LABS: APPEARANCE,URINE CLEAR; BILIRUBIN, URINE NEGATIVE (NEGATIVE); COLOR,URINE PALE YELLOW; GLUCOSE, URINE (UA) 4+ (NEGATIVE); KETONES,URINE 2+ (NEGATIVE); LEUKOCYTE ESTERASE ,URINE NEGATIVE (NEGATIVE); NITRITE,URINE NEGATIVE (NEGATIVE); PH,URINE 5 (4.5-8.0); PROTEIN,URINE 2+ (NEGATIVE); UROBILINOGEN,URINE NORMAL MG/DL (0.0-1.0)
[2020-04-12] MEDS ORDERED: LORazepam Inj 2mg/ml 1ml IV PRN (18:00)
--- NOTE | 2020-04-12 18:19 | Cardiology Progress Note ---
Assessment/Plan Assessment/Plan full note dicated afib coverted to sisnu wit iv amio admistration follwo serial enzyme adn ekg he declien intuabbation and is trying to jose off his bipap ecotrin anticoagualtion with [facility] for afib an thrombisis prevention in setting of covid + [id number] Objective Last 24 Hour Vital Signs Date Time Temp Pulse Resp B/P (MAP) Pulse Ox O2 Delivery O2 Flow Rate FiO2 04/12/20 17:30 116 34 131/65 (87) 93 04/12/20 17:02 97.1 113 33 136/68 (90) 94 04/12/20 16:30 116 33 136/69 (91) 93 04/12/20 16:02 117 33 137/74 (95) 93 04/12/20 16:00 117 04/12/20 16:00 Nasal Cannula 15.0 04/12/20 16:00 100 04/12/20 15:30 118 33 145/75 (98) 97 04/12/20 15:00 96 Bi-Pap 100 04/12/20 15:00 142 35 96 100 04/12/20 15:00 167 33 124/99 (107) 95 04/12/20 14:00 100 04/12/20 14:00 160 27 113/81 (92) 90 04/12/20 13:30 152 29 114/88 (97) 90 04/12/20 13:25 168 148/70 04/12/20 13:15 168 36 88 100 04/12/20 12:55 180 26 215/115 (148) 83 04/12/20 12:00 Nasal Cannula 15.0 04/12/20 12:00 97.5 160 30 148/70 (96) 85 04/12/20 12:00 60.0 100 04/12/20 12:00 119 04/12/20 11:18 92 High Flow 60.0 100 04/12/20 08:00 60.0 100 04/12/20 08:00 Nasal Cannula 15.0 04/12/20 08:00 97.5 112 26 147/82 (103) 91 04/12/20 07:47 132 04/12/20 06:30 81 High Flow 60.0 100 04/12/20 04:00 60.0 100 04/12/20 04:00 Nasal Cannula 15.0 04/12/20 04:00 97.6 112 30 159/70 (99) 90 04/12/20 03:34 109 04/12/20 03:16 90 High Flow 60.0 100 04/12/20 00:00 97.5 108 30 132/54 (80) 90 04/12/20 00:00 109 04/12/20 00:00 Nasal Cannula 15.0 04/11/20 23:06 89 High Flow 60.0 100 04/11/20 20:00 98.0 124 30 118/43 (68) 90 04/11/20 20:00 60.0 100 04/11/20 20:00 Nasal Cannula 15.0 04/11/20 19:38 121 04/11/20 19:34 90 High Flow 60.0 100 Intake and Output 04/11/20 04/12/20 19:00 07:00 Intake Total 1100 ml 2155 ml Balance 1100 ml 2155 ml Intake Oral 260 ml IV Total 1100 ml 1895 ml # Voids 1 2 # Bowel Movements 2 Laboratory Tests Test 04/11/20 20:17 04/11/20 21:30 04/11/20 22:21 04/11/20 23:46 POC Whole Blood Glucose Pending 487 MG/DL (74-106) H Pending Lactic Acid Level 2.00 mmol/L (0.66-2.22) Test 04/12/20 00:47 04/12/20 02:19 04/12/20 03:30 04/12/20 05:27 POC Whole Blood Glucose 380 MG/DL (74-106) H Pending 277 MG/DL (74-106) H White Blood Count 11.8 K/UL (4.8-10.8) #H Red Blood Count 4.47 M/UL (4.70-6.10) L Hemoglobin 13.8 G/DL (14.2-18.0) L Hematocrit 41.7 % (42.0-52.0) L Mean Corpuscular Volume 93 FL (80-99) Mean Corpuscular Hemoglobin 30.8 PG (27.0-31.0) Mean Corpuscular Hemoglobin Concent 33.0 G/DL (32.0-36.0) Red Cell Distribution Width 13.2 % (11.6-14.8) Platelet Count 134 K/UL (150-450) L Mean Platelet Volume 7.7 FL (6.5-10.1) Neutrophils (%) (Auto) % (45.0-75.0) Lymphocytes (%) (Auto) % (20.0-45.0) Monocytes (%) (Auto) % (1.0-10.0) Eosinophils (%) (Auto) % (0.0-3.0) Basophils (%) (Auto) % (0.0-2.0) Sodium Level 134 MMOL/L (136-145) L Potassium Level 4.5 MMOL/L (3.5-5.1) Chloride Level 96 MMOL/L (98-107) L Carbon Dioxide Level 24 MMOL/L (21-32) Anion Gap 14 mmol/L (5-15) Blood Urea Nitrogen 51 mg/dL (7-18) H Creatinine 1.6 MG/DL (0.55-1.30) H Estimat Glomerular Filtration Rate 43.1 mL/min (>60) Glucose Level 287 MG/DL (74-106) #H Uric Acid 7.7 MG/DL (2.6-7.2) H Calcium Level 8.3 MG/DL (8.5-10.1) L Phosphorus Level 1.4 MG/DL (2.5-4.9) L Total Creatine Kinase 216 U/L (26-308) Pro-B-Type Natriuretic Peptide 712 pg/mL (0-125) H Albumin 2.9 G/DL (3.4-5.0) L Test 04/12/20 06:42 04/12/20 12:21 04/12/20 14:00 Arterial Blood pH 7.350 (7.350-7.450) Arterial Blood Partial Pressure CO2 37.6 mmHg (35.0-45.0) Arterial Blood Partial Pressure O2 43.2 mmHg (75.0-100.0) Arterial Blood HCO3 20.5 mmol/L (22.0-26.0) L Arterial Blood Oxygen Saturation 80.2 % (95-100) *L Arterial Blood Base Excess -4.4 (-2-2) L Eliot Test Positive POC Whole Blood Glucose 359 MG/DL (74-106) H Urine Color Pale yellow Urine Appearance Clear Urine pH 5 (4.5-8.0) Urine Specific [place] 1.010 (1.005-1.035) Urine Protein 2+ (NEGATIVE) H Urine Glucose (UA) 4+ (NEGATIVE) H Urine Ketones 2+ (NEGATIVE) H Urine Blood 2+ (NEGATIVE) H Urine Nitrite Negative (NEGATIVE) Urine Bilirubin Negative (NEGATIVE) Urine Urobilinogen Normal MG/DL (0.0-1.0) Urine Leukocyte Esterase Negative (NEGATIVE) Urine RBC Pending Urine WBC Pending Urine Squamous Epithelial Cells Pending Urine Bacteria Pending Urine Eosinophils Pending Urine Osmolality 432 mOsm/kg (429-449) Urine Random Creatinine Pending Urine Random Microalbumin Pending Urine Random Sodium 62 mmol/L (20-110) Urine Microalbumin/Creatinine Ratio Pending Microbiology Date/Time Source Procedure Growth Status 04/11/20 14:06 Nasopharynx SARS-CoV-2 RdRp Gene Assay - Final Complete 04/11/20 13:56 Rectum Received Romeo Thomas MD Apr 12, 2020 18:19
[2020-04-12] MEDS ORDERED: Remdesivir Fact Sheet MISC ONE (18:30)
[2020-04-12] MEDS ORDERED: Miralax 17gm pkt ORAL PRN (19:00)
[2020-04-12] MEDS ORDERED: guaiFENesin 100mg/5ml Liq ud ORAL PRN (19:00)
[2020-04-12] MEDS ORDERED: Albuterol/Ipratropium 3ml neb HHN PRN (19:00)
[2020-04-12] MEDS: Amiodarone 900 MG in D5W 500ml 482 ML IV SCH ×2 (19:00→20:02)
[2020-04-12] MEDS ORDERED: NS IV ONE (20:00)
[2020-04-12] MEDS ORDERED: REMDESIVIR IV ONE (20:00)
--- NOTE | 2020-04-12 20:06 | Internal Med Progress Note ---
Subjective Physician Name Noman Barrios Attending Physician Deidre Chamorro MD Current Medications Medications (Trade) Dose Ordered Sig/Lopez Route PRN Reason Start Time Stop Time Status Last Admin Dose Admin Acetaminophen (Tylenol) 650 mg Q4H PRN ORAL FEVER 04/12/20 19:00 05/11/20 18:59 Albuterol/ Ipratropium (Albuterol/ Ipratropium) 3 ml Q4H PRN HHN Shortness of Breath 04/12/20 19:00 04/16/20 18:59 Amiodarone HCl 900 mg/Dextrose 500 ml @ 0 mls/hr Q24H IV 04/12/20 19:00 05/12/20 18:59 Aspirin (Ecotrin) 81 mg DAILY ORAL 04/13/20 09:00 05/28/20 08:59 Azithromycin 250 mg/Dextrose 275 ml @ 275 mls/hr Q24HRS IV 04/12/20 21:00 04/17/20 20:59 Dexamethasone (Decadron) 4 mg DAILY ORAL 04/13/20 09:00 05/12/20 08:59 Dextrose (Dextrose 50%) 25 ml Q30M PRN IV Hypoglycemia 04/12/20 18:45 07/10/20 20:44 Dextrose (Dextrose 50%) 50 ml Q30M PRN IV Hypoglycemia 04/12/20 18:45 07/10/20 20:44 Enalaprilat (Vasotec) 2.5 mg Q4H PRN IV sbp more than 200 04/12/20 19:00 05/12/20 18:59 Enoxaparin Sodium (Lovenox) 100 mg EVERY 12 HOURS SUBQ 04/12/20 21:00 07/11/20 20:59 Fluticasone Propionate (Flonase) 1 spray TWICE A DAY NASAL 04/13/20 09:00 05/11/20 21:59 Gabapentin (Neurontin) 600 mg THREE TIMES A DAY ORAL 04/13/20 09:00 05/12/20 12:59 Guaifenesin (Robitussin) 100 mg Q4H PRN ORAL For Cough 04/12/20 19:00 07/10/20 18:59 Hydralazine HCl (Apresoline) 20 mg Q4H PRN IV sbp more than 160 04/12/20 19:00 07/11/20 18:59 Insulin Aspart (NovoLOG) BEFORE MEALS AND HS SUBQ 04/12/20 21:00 07/10/20 20:59 Labetalol HCl (Normodyne) 20 mg Q1H PRN IV sbo more than 180 04/12/20 19:00 05/12/20 12:59 Lorazepam (Ativan 2mg/ml 1ml) 2 mg Q4H PRN IV For Anxiety 04/12/20 19:00 04/19/20 18:59 Ondansetron HCl (Zofran) 4 mg Q6H PRN IVP Nausea & Vomiting 04/12/20 19:00 05/11/20 18:59 Polyethylene Glycol (Miralax) 17 gm DAILYPRN PRN ORAL Constipation 04/12/20 19:00 05/12/20 18:59 Remdesivir 100 mg/ Sodium Chloride 250 ml @ 250 mls/hr Q24H IV 04/13/20 20:00 04/16/20 20:59 Remdesivir 200 mg/ Sodium Chloride 250 ml @ 125 mls/hr ONCE ONCE IV 04/12/20 20:00 04/12/20 21:59 Sodium Chloride 1,000 ml @ 50 mls/hr Q20H IV 04/12/20 18:30 05/12/20 16:44 Trazodone HCl (Desyrel) 100 mg BEDTIME ORAL 04/12/20 21:00 05/12/20 20:59 Allergies: Coded Allergies: CODEINE (Verified Allergy, Unknown, 04/11/20) PENICILLINS (Verified Allergy, Unknown, 04/11/20) Uncoded Allergies: SULFA (Allergy, Unknown, 04/11/20) Subjective In ICU, on D-19 Respiratory Isolation room, awake, responsive, severe shortness on BIPAP. Objective Last Vital Signs Date Time Temp Pulse Resp B/P (MAP) Pulse Ox O2 Delivery O2 Flow Rate FiO2 04/12/20 19:03 92 Bi-Pap 100 04/12/20 19:02 142 35 04/12/20 19:00 165/65 (98) 04/12/20 17:02 97.1 04/12/20 16:00 15.0 Laboratory Tests Test 04/11/20 20:17 04/11/20 21:30 04/11/20 22:21 04/11/20 23:46 POC Whole Blood Glucose Pending 487 MG/DL (74-106) H Pending Lactic Acid Level 2.00 mmol/L (0.66-2.22) Test 04/12/20 00:47 04/12/20 02:19 04/12/20 03:30 04/12/20 05:27 POC Whole Blood Glucose 380 MG/DL (74-106) H Pending 277 MG/DL (74-106) H White Blood Count 11.8 K/UL (4.8-10.8) #H Red Blood Count 4.47 M/UL (4.70-6.10) L Hemoglobin 13.8 G/DL (14.2-18.0) L Hematocrit 41.7 % (42.0-52.0) L Mean Corpuscular Volume 93 FL (80-99) Mean Corpuscular Hemoglobin 30.8 PG (27.0-31.0) Mean Corpuscular Hemoglobin Concent 33.0 G/DL (32.0-36.0) Red Cell Distribution Width 13.2 % (11.6-14.8) Platelet Count 134 K/UL (150-450) L Mean Platelet Volume 7.7 FL (6.5-10.1) Neutrophils (%) (Auto) % (45.0-75.0) Lymphocytes (%) (Auto) % (20.0-45.0) Monocytes (%) (Auto) % (1.0-10.0) Eosinophils (%) (Auto) % (0.0-3.0) Basophils (%) (Auto) % (0.0-2.0) Sodium Level 134 MMOL/L (136-145) L Potassium Level 4.5 MMOL/L (3.5-5.1) Chloride Level 96 MMOL/L (98-107) L Carbon Dioxide Level 24 MMOL/L (21-32) Anion Gap 14 mmol/L (5-15) Blood Urea Nitrogen 51 mg/dL (7-18) H Creatinine 1.6 MG/DL (0.55-1.30) H Estimat Glomerular Filtration Rate 43.1 mL/min (>60) Glucose Level 287 MG/DL (74-106) #H Uric Acid 7.7 MG/DL (2.6-7.2) H Calcium Level 8.3 MG/DL (8.5-10.1) L Phosphorus Level 1.4 MG/DL (2.5-4.9) L Total Creatine Kinase 216 U/L (26-308) Pro-B-Type Natriuretic Peptide 712 pg/mL (0-125) H Albumin 2.9 G/DL (3.4-5.0) L Test 04/12/20 06:42 04/12/20 12:21 04/12/20 14:00 Arterial Blood pH 7.350 (7.350-7.450) Arterial Blood Partial Pressure CO2 37.6 mmHg (35.0-45.0) Arterial Blood Partial Pressure O2 43.2 mmHg (75.0-100.0) Arterial Blood HCO3 20.5 mmol/L (22.0-26.0) L Arterial Blood Oxygen Saturation 80.2 % (95-100) *L Arterial Blood Base Excess -4.4 (-2-2) L Eliot Test Positive POC Whole Blood Glucose 359 MG/DL (74-106) H Urine Color Pale yellow Urine Appearance Clear Urine pH 5 (4.5-8.0) Urine Specific [place] 1.010 (1.005-1.035) Urine Protein 2+ (NEGATIVE) H Urine Glucose (UA) 4+ (NEGATIVE) H Urine Ketones 2+ (NEGATIVE) H Urine Blood 2+ (NEGATIVE) H Urine Nitrite Negative (NEGATIVE) Urine Bilirubin Negative (NEGATIVE) Urine Urobilinogen Normal MG/DL (0.0-1.0) Urine Leukocyte Esterase Negative (NEGATIVE) Urine RBC 5-10 /HPF (0 - 0) H Urine WBC 0 /HPF (0 - 0) Urine Squamous Epithelial Cells Occasional /LPF Urine Bacteria None /HPF (NONE) Urine Yeast Moderate /HPF (NONE) H Urine Eosinophils None seen (NONE SEEN) Urine Osmolality 432 mOsm/kg (429-449) Urine Random Creatinine Pending Urine Random Microalbumin Pending Urine Random Sodium 62 mmol/L (20-110) Urine Microalbumin/Creatinine Ratio Pending Microbiology Date/Time Source Procedure Growth Status 04/11/20 14:06 Nasopharynx SARS-CoV-2 RdRp Gene Assay - Final Complete 04/11/20 13:56 Rectum Received Intake and Output 04/11/20 04/12/20 19:00 07:00 Intake Total 1100 ml 2155 ml Balance 1100 ml 2155 ml Intake Oral 260 ml IV Total 1100 ml 1895 ml # Voids 1 2 # Bowel Movements 2 Objective Awake, alert, responsive, on BiPAP Further physical examination deferred due to COVID-19 isolation. Assessment/Plan Status Narrative (1) Acute hypoxemic respiratory failure ICD Codes: J96.00 - Acute respiratory failure, SNOMED: 75957835 (2) Pneumonia due to COVID-19 virus ICD Codes: U07.1 - COVID-19; J12.89 - Other viral pneumonia SNOMED: 237457544, 254906682 (3) MORIAH (acute kidney injury) ICD Codes: N17.9 - Acute kidney failure, unspecified SNOMED: 33121904, 8626653 (4) History of hypertension ICD Codes: Z86.79 - Personal history of other diseases of the circulatory system SNOMED: 850089956 (5) History of CVA (cerebrovascular accident) ICD Codes: Z86.73 - Personal history of transient ischemic attack (TIA), and cerebral infarction without residual deficits SNOMED: 712208328 (6) Diabetes mellitus ICD Codes: E11.9 - Type 2 diabetes mellitus without complications SNOMED: 36966767 (7) morbid obesity. Assessment/Plan: in respiratory isolation respiratory treatment On BiPAP sliding scale diabetic diet monitor BP echocardiogram monitor laboratory and culture Antibiotics: Azithromycin On dexamethasone IV On Remdesivir CODE STATUS: Full code. DVT prophylaxis: Lovenox injection. Noman Barrios MD Apr 12, 2020 20:06
[2020-04-12] MEDS ORDERED: Azithromycin 250 MG in D5W 275 ML IV SCH ×4 (21:00)
[2020-04-12] MEDS ORDERED: TraZODone 100mg tab ORAL SCH ×2 (21:00)
[2020-04-12] MEDS ORDERED: Enoxaparin 100mg Inj SUBQ SCH (21:00)
--- NOTE | 2020-04-12 21:00 | Consultation ---
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 ALLERGIES: CODEINE, DARVON, ERYTHROMYCIN, METFORMIN, PENICILLIN, SELDANE, STATINS, SULFA, AND TAVIST ACCORDING TO THE RECORDS FROM [facility]. REVIEW OF SYSTEMS: According to the emergency room physician's notation, the review of systems reportedly are negative except for what was mentioned in the history of present illness above. PHYSICAL EXAMINATION: His physical examination according to the emergency physician who saw him today showed awake and alert, appeared comfortable. CARDIAC: Tachycardic. No murmurs were noted. RESPIRATORY: Increased work of breathing, accessory muscle use, nonrebreather mask. ABDOMEN: Soft, nondistended, nontender. SKIN: Intact. LABORATORY AND DIAGNOSTIC DATA: White count 11.8 with hemoglobin of 13.8 and platelet count of 134, white count was 6.2 yesterday with a lymphocyte count of 11%, platelet counts decreased yesterday. Blood gases, pH of 7.35, pCO2 of 37, pO2 of 43, 83% saturation probably venous gas. Sodium 134, potassium 4.5, chloride 96, bicarb 24, BUN of 51, creatinine 1.6, and a glucose of 287. Blood sugar 277 to 359. Uric acid of 7.7, phosphorus of 1.4, CK of 216, and nitrate peptide of 712. Albumin of 2.9. Coags, INR 1.2 and PTT of 27. D-dimer of 4.24. Urinalysis showing relatively normal although somewhat pending at this time. A chest x-ray was performed in the emergency room showing bilateral infiltrates, undifferentiated film. CT scan of the head was performed on 04/08/2020 without IV contrast and unfortunately the results are not completely available, moderately degraded images, motion artifact, no acute intracranial pathology. A chest x-ray performed on 04/08/2020 showed no active disease in the chest. Electrocardiogram at the time of the ER evaluation apparently sinus tachycardia, rate of 122, right bundle-branch conduction defect. Subsequently he has had episodes of atrial fibrillation with rapid ventricular response on the EKG. An echocardiogram has been performed preliminary report shows ejection fraction of 70%, pulmonary artery systolic pressure of 24. The patient's telemetry data was reviewed. The patient was in atrial fibrillation with rapid ventricular response, he was converted to sinus after amiodarone administration. ASSESSMENT AND PLAN: 1. Atrial fibrillation with rapid ventricular response. 2. Pulmonary infiltrates on a chest x-ray. 3. History of recent COVID positive infection. 4. Coronary artery disease, status post percutaneous coronary intervention. 5. Diabetes mellitus. 6. Hypertension history. 7. Hyperlipidemia. 8. Obesity. 9. Respiratory insufficiency. This patient was seen in cardiac consultation. The patient's atrial fibrillation has been addressed. The patient has received IV amiodarone to which he has responded and converting to sinus rhythm. He may require to be on anticoagulation if needed in the near future if and when safe. At the present time, the patient is battling with the BiPAP, has been requested not to be intubated and is wishing to take his BiPAP off which if successful would likely the result in bad outcome and he should have serial enzymes and EKGs. In light of his coronary disease, he should be continued on aspirin therapy. The question remains whether the patient should be on some anticoagulation full dose in light of COVID positive in light of his worsening situation. His cardiac enzymes may be increased eventually because of demand of tachycardia in the setting of underlying coronary disease, not specifically an acute coronary syndrome. The patient will be followed. Romeo Thomas M.D. DR: Kate JOB#: [id number] CC:
[2020-04-12] MEDS: Enoxaparin 100mg Inj SUBQ SCH (21:53)
[2020-04-12] MEDS: LORazepam Inj 2mg/ml 1ml IV PRN (23:33)
[2020-04-13] VITALS (40 sets, daily range): BP systolic 103–171; BP diastolic 48–93
[2020-04-13] MEDS: LORazepam Inj 2mg/ml 1ml IV PRN ×2 (03:40→16:34)
[2020-04-13 04:49] LABS: HEMATOCRIT 40.7 % (42.0-52.0); HEMOGLOBIN 13.4 G/DL (14.2-18.0); MEAN CORPUSCULAR VOLUME 93 FL (80-99); PLATELET COUNT 168 K/UL (150-450); RED BLOOD COUNT 4.36 M/UL (4.70-6.10); RED CELL DISTRIBUTION WIDTH 13.9 % (11.6-14.8); WHITE BLOOD COUNT 12.2 K/UL (4.8-10.8)
[2020-04-13 04:55] LABS: % IRON SATURATION 12 % (15-50); IRON 26 ug/dL (50-175); TOTAL IRON BINDING CAPACITY 223 ug/dL (250-450)
[2020-04-13 05:12] LABS: ALANINE AMINOTRANSFERASE 36 U/L (12-78); ALBUMIN 2.8 G/DL (3.4-5.0); ALBUMIN/GLOBULIN RATIO 0.6 (1.0-2.7); ALKALINE PHOSPHATASE 64 U/L (46-116); ANION GAP 12 mmol/L (5-15); ASPARTATE AMINO TRANSFERASE 48 U/L (15-37); BILIRUBIN,TOTAL 0.5 MG/DL (0.2-1.0); BLOOD UREA NITROGEN 62 mg/dL (7-18); CALCIUM 8.1 MG/DL (8.5-10.1); CARBON DIOXIDE 25 MMOL/L (21-32); CHLORIDE 98 MMOL/L (98-107); CREATININE 1.4 MG/DL (0.55-1.30); FERRITIN 557 NG/ML (8-388); SODIUM 135 MMOL/L (136-145)
[2020-04-13 05:13] LABS: BILIRUBIN,DIRECT 0.2 MG/DL (0.0-0.3); CHOLESTEROL 80 MG/DL (< 200); HDL CHOLESTEROL 8 MG/DL (40-60); TRIGLYCERIDES 150 MG/DL (30-150)
[2020-04-13 05:32] LABS: GAMMA GLUTAMYL TRANSPEPTIDASE 28 U/L (5-85); PHOSPHORUS 1.9 MG/DL (2.5-4.9)
[2020-04-13] MEDS: NovoLOG Insulin Flexpen SUBQ SCH ×9 (05:56→21:54)
--- NOTE | 2020-04-13 08:43 | Diagnostic Imaging Report ---
EXAM: XR Chest, 1 View CLINICAL HISTORY: DYSPNEA TECHNIQUE: Frontal view of the chest. COMPARISON: No relevant prior studies available. FINDINGS/IMPRESSION: Patchy bilateral airspace opacities consistent with extensive multifocal infiltrate. No pneumothorax. Cardiomegaly. Poor inspiration. Elevated right hemidiaphragm.
[2020-04-13] MEDS ORDERED: Heparin 5000 units/ml inj SUBQ SCH (09:00)
[2020-04-13] MEDS ORDERED: Flonase Nasal Inhaler 16gm NASAL SCH (09:00)
[2020-04-13] MEDS ORDERED: Aspirin EC 81mg tab ORAL SCH ×2 (09:00)
[2020-04-13] MEDS: Enoxaparin 100mg Inj SUBQ SCH ×2 (09:42→20:57)
[2020-04-13] MEDS ORDERED: Sodium Phosphate 15 MM in NS 275 ML IVPB ONE (11:00)
--- NOTE | 2020-04-13 11:15 | Consultation ---
DATE OF CONSULTATION: 04/13/2020 ENDOCRINOLOGY CONSULTATION CONSULTING PHYSICIAN: Maurice Larry MD. REFERRING PHYSICIAN: Deidre Chamorro MD. REASON FOR CONSULTATION: Diabetes management. HISTORY OF PRESENT ILLNESS: The patient is a 70-year-old male, who is known to me from many years ago when I used to manage his diabetes and our last encounter was in 2017 and I have not seen him ever since. At that time, his diabetes was managed with Janumet 50/500 one tablet b.i.d. as well as glipizide 10 mg b.i.d. The patient presented to the hospital with shortness of breath and fever, was diagnosed with COVID pneumonia, admitted to the ICU and was started on a BiPAP. PAST MEDICAL HISTORY: 1. Hypertension. 2. Hyperlipidemia. 3. Coronary artery disease. PAST SURGICAL HISTORY: 1. Coronary angioplasty. 2. Tonsillectomy. ALLERGIES: Many to, 1. Codeine. 2. Diovan. 3. Erythromycin. 4. Metformin. 5. Penicillin. 6. Seldane. 7. Sulfa. 8. Tavist. FAMILY HISTORY: Heart failure in the mother. SOCIAL HISTORY: The patient quit smoking many years ago. No alcohol or drug use. REVIEW OF SYSTEMS: Unobtainable. The patient is on BiPAP. LABORATORY DATA: WBC 12.2, hemoglobin 13, hematocrit 40, platelets of 168,000. Sodium 135, potassium 4.0, chloride 98, bicarb 25, BUN 62, creatinine 1.4, glucose of 366. Hemoglobin A1c is 9.8. BNP today is 1387. TSH is 0.129. CURRENT MEDICATIONS: Reviewed and reconciled. Currently, he is remdesivir and dexamethasone for the treatment of COVID. PHYSICAL EXAMINATION: VITAL SIGNS: Blood pressure is 140/57, heart rate of 87, respiratory rate of 30, and pulse of 122. The patient is on BiPAP. Physical exam is deferred due to COVID positive. DIAGNOSES: 1. COVID Pneumonia. 2. Hypoxemia. 3. Diabetes, out of control. 4. Abnormal TSH. PLAN: 1. The low TSH is due to the steroid effect, no need to treat, it should be repeated in a couple of weeks. 2. Diabetes managed with combination of Levemir and NovoLog. The dose has been adjusted to control. We will follow him closely during hospital stay. Thank you, Dr. Chamorro for the courtesy of this consultation. Maurice Larry M.D. DR: RK JOB#: [id number] CC: YANIRA
[2020-04-13] MEDS: Amiodarone 900 MG in D5W 500ml 482 ML IV SCH (11:20)
--- NOTE | 2020-04-13 13:27 | Nephrology Progress Note ---
Assessment/Plan Problem List: (1) COVID-19 (2) MORIAH (acute kidney injury) Assessment: Serum creatinine lowered to 1.4 today (3) Diabetes mellitus (4) History of hypertension (5) History of CVA (cerebrovascular accident) (6) Acute respiratory failure Assessment MORIAH, multifactorial, most likely primarily due to sepsis. Serum creatinine up to 1.6 COVID-19 pneumonia, acute respiratory failure. Lactic acidosis, mild leukocytosis, thrombocytopenia, Elevated liver enzymes History of diabetes History of hypertension History of coronary artery disease status post stent placement CVA Lives in a prison Plan Brown catheter Parameters for blood pressure medication Antibiotics, avoid nephrotoxic's Decadron, Remdesevir, further management per ID Monitor renal parameters Hydration, increase normal saline to 75 cc an hour Per orders Subjective ROS Limited/Unobtainable: Yes Objective Objective Last 24 Hour Vital Signs Date Time Temp Pulse Resp B/P (MAP) Pulse Ox O2 Delivery O2 Flow Rate FiO2 04/13/20 13:00 124 34 131/88 (102) 87 04/13/20 12:30 123 38 125/76 (92) 84 04/13/20 12:00 100 04/13/20 12:00 98.7 123 39 149/62 (91) 86 04/13/20 12:00 123 04/13/20 12:00 Bi-pap 04/13/20 11:45 122 39 87 100 04/13/20 11:00 115 36 126/67 (86) 88 04/13/20 10:30 116 36 126/71 (89) 88 04/13/20 10:00 118 36 120/62 (81) 88 04/13/20 09:30 124 34 130/66 (87) 85 04/13/20 09:15 89 Bi-Pap 100 04/13/20 09:00 126 38 149/68 (95) 78 04/13/20 08:30 127 37 129/82 (98) 86 04/13/20 08:00 100.0 130 29 134/72 (92) 87 04/13/20 08:00 Bi-pap 04/13/20 08:00 100 04/13/20 08:00 119 04/13/20 07:51 128 43 89 100 04/13/20 07:00 127 35 154/79 (104) 87 04/13/20 06:30 125 37 139/68 (91) 84 04/13/20 06:30 122 37 140/67 (91) 85 04/13/20 06:00 98.9 123 37 145/69 (94) 84 04/13/20 05:30 121 33 170/68 (102) 83 04/13/20 05:00 120 35 156/65 (95) 87 04/13/20 04:30 120 37 157/66 (96) 86 04/13/20 04:00 113 04/13/20 04:00 100 04/13/20 04:00 Bi-pap 04/13/20 04:00 113 34 126/63 (84) 86 04/13/20 03:30 113 35 142/70 (94) 90 04/13/20 03:16 87 Bi-Pap 100 04/13/20 03:14 116 35 87 100 04/13/20 03:00 117 34 136/69 (91) 88 04/13/20 02:30 125 32 171/72 (105) 87 04/13/20 02:00 125 32 171/72 (105) 87 04/13/20 01:30 125 34 135/93 (107) 84 04/13/20 01:00 120 36 139/62 (87) 82 04/13/20 00:30 123 38 138/64 (88) 82 04/13/20 00:00 98.9 127 33 167/82 (110) 87 04/13/20 00:00 Bi-pap 04/12/20 23:08 87 Bi-Pap 100 04/12/20 23:06 122 36 87 100 04/12/20 23:00 123 37 145/80 (101) 86 04/12/20 23:00 123 37 145/80 (101) 86 04/12/20 22:30 121 35 142/65 (90) 89 04/12/20 22:00 125 34 147/83 (104) 80 04/12/20 21:30 125 33 143/76 (98) 88 04/12/20 21:00 129 27 101/85 (90) 86 04/12/20 20:30 117 32 122/68 (86) 91 04/12/20 20:15 117 33 123/67 (85) 90 04/12/20 20:00 100 04/12/20 20:00 116 04/12/20 20:00 Bi-pap 04/12/20 20:00 116 31 113/64 (80) 90 04/12/20 19:30 117 31 119/70 (86) 91 04/12/20 19:03 92 Bi-Pap 100 04/12/20 19:02 142 35 92 100 04/12/20 19:00 98.7 121 32 165/65 (98) 86 04/12/20 18:35 117 28 111/63 (79) 90 04/12/20 18:00 124 28 123/86 (98) 90 04/12/20 17:30 116 34 131/65 (87) 93 04/12/20 17:02 97.1 113 33 136/68 (90) 94 04/12/20 16:30 116 33 136/69 (91) 93 04/12/20 16:02 117 33 137/74 (95) 93 04/12/20 16:00 117 04/12/20 16:00 Nasal Cannula 15.0 04/12/20 16:00 100 04/12/20 15:30 118 33 145/75 (98) 97 04/12/20 15:00 96 Bi-Pap 100 04/12/20 15:00 142 35 96 100 04/12/20 15:00 167 33 124/99 (107) 95 04/12/20 14:00 100 04/12/20 14:00 160 27 113/81 (92) 90 04/12/20 13:30 152 29 114/88 (97) 90 Intake and Output 04/12/20 04/13/20 19:00 07:00 Intake Total 149.99 ml 998.26 ml Output Total 860 ml 720 ml Balance -710.01 ml 278.26 ml Intake Oral 50 ml IV Total 99.99 ml 998.26 ml Output Urine Total 860 ml 720 ml # Voids 2 # Bowel Movements 1 1 Laboratory Tests 04/12/20 14:00: Urine Color Pale yellow, Urine Appearance Clear, Urine pH 5, Urine Specific [place] 1.010, Urine Protein 2+H, Urine Glucose (UA) 4+H, Urine Ketones 2+H, Urine Blood 2+H, Urine Nitrite Negative, Urine Bilirubin Negative, Urine Urobilinogen Normal, Urine Leukocyte Esterase Negative, Urine RBC 5-10H, Urine WBC 0, Urine Squamous Epithelial Cells Occasional, Urine Bacteria None, Urine Yeast ModerateH, Urine Eosinophils None seen, Urine Osmolality 432, Urine Random Creatinine [Pending], Urine Random Microalbumin [Pending], Urine Random Sodium 62, Urine Microalbumin/Creatinine Ratio [Pending] 04/12/20 17:12: POC Whole Blood Glucose 441H 04/13/20 03:40: White Blood Count 12.2H, Red Blood Count 4.36L, Hemoglobin 13.4L, Hematocrit 40.7L, Mean Corpuscular Volume 93, Mean Corpuscular Hemoglobin 30.7, Mean Corpuscular Hemoglobin Concent 32.9, Red Cell Distribution Width 13.9, Platelet Count 168, Mean Platelet Volume 7.3, Neutrophils (%) (Auto) , Lymphocytes (%) ( Auto) , Monocytes (%) (Auto) , Eosinophils (%) (Auto) , Basophils (%) (Auto) , Differential Total Cells Counted 100, Neutrophils % (Manual) 74, Lymphocytes % ( Manual) 10L, Monocytes % (Manual) 16H, Eosinophils % (Manual) 0, Basophils % ( Manual) 0, Band Neutrophils 0, Platelet Estimate Adequate, Platelet Morphology Normal, Red Blood Cell Morphology Normal, Fibrinogen 424H, D-Dimer 7.11H, Sodium Level 135L, Potassium Level 4.0, Chloride Level 98, Carbon Dioxide Level 25, Anion Gap 12, Blood Urea Nitrogen 62H, Creatinine 1.4H, Estimat Glomerular Filtration Rate 50.2, Glucose Level 366H, Hemoglobin A1c 9.8H, Uric Acid 9.1H, Calcium Level 8.1L, Phosphorus Level 1.9L, Magnesium Level 2.2, Iron Level 26L, Total Iron Binding Capacity 223L, Percent Iron Saturation 12L, Unsaturated Iron Binding 197, Ferritin 557H, Total Bilirubin 0.5, Direct Bilirubin 0.2, Gamma Glutamyl Transpeptidase 28, Aspartate Amino Transf (AST/SGOT) 48H, Alanine Aminotransferase (ALT/SGPT) 36, Alkaline Phosphatase 64, Lactate Dehydrogenase 839H, Troponin I 0.026, C-Reactive Protein, Quantitative 30.9H, Pro-B-Type Natriuretic Peptide 1387H, Total Protein 7.2, Albumin 2.8L, Globulin 4.4, Albumin/Globulin Ratio 0.6L, Triglycerides Level 150, Cholesterol Level 80, LDL Cholesterol 48, HDL Cholesterol 8L, Cholesterol/HDL Ratio 10.0H, Vitamin B12 Level 1841H, Folate 8.5L, Thyroid Stimulating Hormone (TSH) 0.129L, Hepatitis A IgM Antibody [Pending], Hepatitis B Surface Antigen [Pending], Hepatitis B Core IgM Antibody [Pending], Hepatitis C Antibody [Pending], HIV (1&2) Antibody Rapid Negative, TB Test (T-Spot) [Pending], TB Test Nil Control (T-Spot) [ Pending], TB Test Panel A (T-Spot) [Pending], TB Test Panel B (T-Spot) [Pending] , TB Test Positive Control (T-Spot) [Pending] 04/13/20 09:17: POC Whole Blood Glucose 334H Height (Feet): 5 Height (Inches): 9.00 Weight (Pounds): 221 General Appearance: mild distress EENT: other - On BiPAP Cardiovascular: tachycardia Respiratory/Chest: decreased breath sounds Abdomen: distended Carlos Underwood MD Apr 13, 2020 13:27
--- NOTE | 2020-04-13 13:51 | Pulmonolgy Critical Care Note ---
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 (8) Hx of heart artery stent (9) DNI (do not intubate) Respiratory: monitor respiratory rate, adjust FIO2, CXR, ABG Cardiac: start pressors, continue pressors - on Amiodarone, other - heart rate controlled Renal: F/U I&O, decrease IV fluid Infectious Disease: check cultures, continue antibiotics Gastrointestinal: hold feedings Endocrine: monitor blood sugar Hematologic: monitor H/H Neurologic: PRN Ativan, PRN Morphine Prophylaxis: Protonix, Heparin Disposition: keep in ICU Notes 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: 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, 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, renal Discussed with: nurses, consultants, upper caserglobal marketing manager - Objective Last 24 Hour Vital Signs Date Time Temp Pulse Resp B/P (MAP) Pulse Ox O2 Delivery O2 Flow Rate FiO2 04/13/20 13:00 124 34 131/88 (102) 87 04/13/20 12:30 123 38 125/76 (92) 84 04/13/20 12:00 100 04/13/20 12:00 98.7 123 39 149/62 (91) 86 04/13/20 12:00 123 04/13/20 12:00 Bi-pap 04/13/20 11:45 122 39 87 100 04/13/20 11:00 115 36 126/67 (86) 88 04/13/20 10:30 116 36 126/71 (89) 88 04/13/20 10:00 118 36 120/62 (81) 88 04/13/20 09:30 124 34 130/66 (87) 85 04/13/20 09:15 89 Bi-Pap 100 04/13/20 09:00 126 38 149/68 (95) 78 04/13/20 08:30 127 37 129/82 (98) 86 04/13/20 08:00 100.0 130 29 134/72 (92) 87 04/13/20 08:00 Bi-pap 04/13/20 08:00 100 04/13/20 08:00 119 04/13/20 07:51 128 43 89 100 04/13/20 07:00 127 35 154/79 (104) 87 04/13/20 06:30 125 37 139/68 (91) 84 04/13/20 06:30 122 37 140/67 (91) 85 04/13/20 06:00 98.9 123 37 145/69 (94) 84 04/13/20 05:30 121 33 170/68 (102) 83 04/13/20 05:00 120 35 156/65 (95) 87 04/13/20 04:30 120 37 157/66 (96) 86 04/13/20 04:00 113 04/13/20 04:00 100 04/13/20 04:00 Bi-pap 04/13/20 04:00 113 34 126/63 (84) 86 04/13/20 03:30 113 35 142/70 (94) 90 04/13/20 03:16 87 Bi-Pap 100 04/13/20 03:14 116 35 87 100 04/13/20 03:00 117 34 136/69 (91) 88 04/13/20 02:30 125 32 171/72 (105) 87 04/13/20 02:00 125 32 171/72 (105) 87 04/13/20 01:30 125 34 135/93 (107) 84 04/13/20 01:00 120 36 139/62 (87) 82 04/13/20 00:30 123 38 138/64 (88) 82 04/13/20 00:00 98.9 127 33 167/82 (110) 87 04/13/20 00:00 Bi-pap 04/12/20 23:08 87 Bi-Pap 100 04/12/20 23:06 122 36 87 100 04/12/20 23:00 123 37 145/80 (101) 86 04/12/20 23:00 123 37 145/80 (101) 86 04/12/20 22:30 121 35 142/65 (90) 89 04/12/20 22:00 125 34 147/83 (104) 80 04/12/20 21:30 125 33 143/76 (98) 88 04/12/20 21:00 129 27 101/85 (90) 86 04/12/20 20:30 117 32 122/68 (86) 91 04/12/20 20:15 117 33 123/67 (85) 90 04/12/20 20:00 100 7/31/20 20:00 116 04/12/20 20:00 Bi-pap 04/12/20 20:00 116 31 113/64 (80) 90 04/12/20 19:30 117 31 119/70 (86) 91 04/12/20 19:03 92 Bi-Pap 100 04/12/20 19:02 142 35 92 100 04/12/20 19:00 98.7 121 32 165/65 (98) 86 04/12/20 18:35 117 28 111/63 (79) 90 04/12/20 18:00 124 28 123/86 (98) 90 04/12/20 17:30 116 34 131/65 (87) 93 04/12/20 17:02 97.1 113 33 136/68 (90) 94 04/12/20 16:30 116 33 136/69 (91) 93 04/12/20 16:02 117 33 137/74 (95) 93 04/12/20 16:00 117 04/12/20 16:00 Nasal Cannula 15.0 04/12/20 16:00 100 04/12/20 15:30 118 33 145/75 (98) 97 04/12/20 15:00 96 Bi-Pap 100 04/12/20 15:00 142 35 96 100 04/12/20 15:00 167 33 124/99 (107) 95 04/12/20 14:00 100 04/12/20 14:00 160 27 113/81 (92) 90 Status: somnolent Condition: critical HEENT: atraumatic Neck: full ROM Lungs: rales, rhonchi Heart: HR/BP stable Abdomen: soft, non-tender Extremities: no C/C/E Decubiti: location Micro: Microbiology Date/Time Source Procedure Growth Status 04/11/20 13:20 Blood Blood Culture - Preliminary NO GROWTH AFTER 24 HOURS Resulted 04/11/20 13:05 Blood Blood Culture - Preliminary NO GROWTH AFTER 24 HOURS Resulted 04/11/20 14:06 Nasopharynx SARS-CoV-2 RdRp Gene Assay - Final Complete 04/11/20 13:56 Nasal Nares MRSA Culture - Final Staphylococcus Aureus - Mrsa Complete 04/12/20 14:00 Urine,Clean Catch Urine Culture - Preliminary NO GROWTH Resulted 04/11/20 13:56 Rectum VRE Culture - Final NO VANCOMYCIN RESISTANT ENTEROCOCCUS ... Complete 04/11/20 13:56 Rectum - Final NO CARBAPENEM-RESISTANT ENTEROBACTERI... Complete Accucheck: 323 Critical Care - Subjective ROS Limited/Unobtainable: Yes Interval Events: pt refused intubation earlier. FI02: 100 Sputum Amount: None I&O: Intake and Output 04/12/20 04/13/20 19:00 07:00 Intake Total 149.99 ml 998.26 ml Output Total 860 ml 720 ml Balance -710.01 ml 278.26 ml Intake Oral 50 ml IV Total 99.99 ml 998.26 ml Output Urine Total 860 ml 720 ml # Voids 2 # Bowel Movements 1 1 CXR: extensive infiltrate Labs: Laboratory Tests Test 04/12/20 14:00 04/12/20 17:12 04/13/20 03:40 04/13/20 09:17 Urine Color Pale yellow Urine Appearance Clear Urine pH 5 (4.5-8.0) Urine Specific Carmi 1.010 (1.005-1.035) Urine Protein 2+ (NEGATIVE) H Urine Glucose (UA) 4+ (NEGATIVE) H Urine Ketones 2+ (NEGATIVE) H Urine Blood 2+ (NEGATIVE) H Urine Nitrite Negative (NEGATIVE) Urine Bilirubin Negative (NEGATIVE) Urine Urobilinogen Normal MG/DL (0.0-1.0) Urine Leukocyte Esterase Negative (NEGATIVE) Urine RBC 5-10 /HPF (0 - 0) H Urine WBC 0 /HPF (0 - 0) Urine Squamous Epithelial Cells Occasional /LPF Urine Bacteria None /HPF (NONE) Urine Yeast Moderate /HPF (NONE) H Urine Eosinophils None seen (NONE SEEN) Urine Osmolality 432 mOsm/kg (429-449) Urine Random Creatinine Pending Urine Random Microalbumin Pending Urine Random Sodium 62 mmol/L (20-110) Urine Microalbumin/Creatinine Ratio Pending POC Whole Blood Glucose 441 MG/DL (74-106) H 334 MG/DL (74-106) H White Blood Count 12.2 K/UL (4.8-10.8) H Red Blood Count 4.36 M/UL (4.70-6.10) L Hemoglobin 13.4 G/DL (14.2-18.0) L Hematocrit 40.7 % (42.0-52.0) L Mean Corpuscular Volume 93 FL (80-99) Mean Corpuscular Hemoglobin 30.7 PG (27.0-31.0) Mean Corpuscular Hemoglobin Concent 32.9 G/DL (32.0-36.0) Red Cell Distribution Width 13.9 % (11.6-14.8) Platelet Count 168 K/UL (150-450) Mean Platelet Volume 7.3 FL (6.5-10.1) Neutrophils (%) (Auto) % (45.0-75.0) Lymphocytes (%) (Auto) % (20.0-45.0) Monocytes (%) (Auto) % (1.0-10.0) Eosinophils (%) (Auto) % (0.0-3.0) Basophils (%) (Auto) % (0.0-2.0) Differential Total Cells Counted 100 Neutrophils % (Manual) 74 % (45-75) Lymphocytes % (Manual) 10 % (20-45) L Monocytes % (Manual) 16 % (1-10) H Eosinophils % (Manual) 0 % (0-3) Basophils % (Manual) 0 % (0-2) Band Neutrophils 0 % (0-8) Platelet Estimate Adequate Platelet Morphology Normal Red Blood Cell Morphology Normal Fibrinogen 424 mg/dL (200-400) H D-Dimer 7.11 mg/L FEU (0.00-0.49) H Sodium Level 135 MMOL/L (136-145) L Potassium Level 4.0 MMOL/L (3.5-5.1) Chloride Level 98 MMOL/L (98-107) Carbon Dioxide Level 25 MMOL/L (21-32) Anion Gap 12 mmol/L (5-15) Blood Urea Nitrogen 62 mg/dL (7-18) H Creatinine 1.4 MG/DL (0.55-1.30) H Estimat Glomerular Filtration Rate 50.2 mL/min (>60) Glucose Level 366 MG/DL (74-106) H Hemoglobin A1c 9.8 % (4.3-6.0) H Uric Acid 9.1 MG/DL (2.6-7.2) H Calcium Level 8.1 MG/DL (8.5-10.1) L Phosphorus Level 1.9 MG/DL (2.5-4.9) L Magnesium Level 2.2 MG/DL (1.8-2.4) Iron Level 26 ug/dL (50-175) L Total Iron Binding Capacity 223 ug/dL (250-450) L Percent Iron Saturation 12 % (15-50) L Unsaturated Iron Binding 197 ug/dL (112-346) Ferritin 557 NG/ML (8-388) H Total Bilirubin 0.5 MG/DL (0.2-1.0) Direct Bilirubin 0.2 MG/DL (0.0-0.3) Gamma Glutamyl Transpeptidase 28 U/L (5-85) Aspartate Amino Transf (AST/SGOT) 48 U/L (15-37) H Alanine Aminotransferase (ALT/SGPT) 36 U/L (12-78) Alkaline Phosphatase 64 U/L (46-116) Lactate Dehydrogenase 839 U/L (81-234) H Troponin I 0.026 ng/mL (0.000-0.056) C-Reactive Protein, Quantitative 30.9 mg/dL (0.00-0.90) H Pro-B-Type Natriuretic Peptide 1387 pg/mL (0-125) H Total Protein 7.2 G/DL (6.4-8.2) Albumin 2.8 G/DL (3.4-5.0) L Globulin 4.4 g/dL Albumin/Globulin Ratio 0.6 (1.0-2.7) L Triglycerides Level 150 MG/DL (30-150) Cholesterol Level 80 MG/DL (< 200) LDL Cholesterol 48 mg/dL (<100) HDL Cholesterol 8 MG/DL (40-60) L Cholesterol/HDL Ratio 10.0 (3.3-4.4) H Vitamin B12 Level 1841 PG/ML (193-986) H Folate 8.5 NG/ML (8.6-58.9) L Thyroid Stimulating Hormone (TSH) 0.129 uiU/mL (0.358-3.740) Hepatitis A IgM Antibody Pending Hepatitis B Surface Antigen Pending Hepatitis B Core IgM Antibody Pending Hepatitis C Antibody Pending HIV (1&2) Antibody Rapid Negative (NEGATIVE) TB Test (T-Spot) Pending TB Test Nil Control (T-Spot) Pending TB Test Panel A (T-Spot) Pending TB Test Panel B (T-Spot) Pending TB Test Positive Control (T-Spot) Pending Deidre Chamorro MD Apr 13, 2020 13:51
[2020-04-13] MEDS ORDERED: Levemir Flexpen SUBQ ONE (14:00)
[2020-04-13] MEDS ORDERED: Sodium Phosphate 30 MM in NS 275 ML IV ONE (14:00)
[2020-04-13] MEDS: Solu-MEDROL 125mg Inj IV SCH ×3 (14:56→23:22)
--- NOTE | 2020-04-13 15:09 | Internal Med Progress Note ---
Subjective Date of Service: Apr 13, 2020 Physician Name Alex Mendez Attending Physician Deidre Chamorro MD Current Medications Medications (Trade) Dose Ordered Sig/Lopez Route PRN Reason Start Time Stop Time Status Last Admin Dose Admin Acetaminophen (Tylenol) 650 mg Q4H PRN ORAL FEVER 04/12/20 19:00 05/11/20 18:59 Albuterol/ Ipratropium (Albuterol/ Ipratropium) 3 ml Q4H PRN HHN Shortness of Breath 04/12/20 19:00 04/16/20 18:59 Amiodarone HCl 900 mg/Dextrose 500 ml @ 0 mls/hr Q24H IV 04/12/20 19:00 05/12/20 18:59 04/13/20 11:20 Azithromycin 250 mg/Sodium Chloride 275 ml @ 275 mls/hr Q24HRS IV 04/13/20 21:00 04/18/20 20:59 Dextrose (Dextrose 50%) 25 ml Q30M PRN IV Hypoglycemia 04/12/20 18:45 07/10/20 20:44 Dextrose (Dextrose 50%) 50 ml Q30M PRN IV Hypoglycemia 04/12/20 18:45 07/10/20 20:44 Enoxaparin Sodium (Lovenox) 100 mg EVERY 12 HOURS SUBQ 04/12/20 21:00 07/11/20 20:59 04/13/20 09:42 Guaifenesin (Robitussin) 100 mg Q4H PRN ORAL For Cough 04/12/20 19:00 07/10/20 18:59 Hydralazine HCl (Apresoline) 10 mg Q4H PRN IV sbp more than 160 04/13/20 14:00 07/11/20 13:59 Insulin Aspart (NovoLOG) EVERY 4 HOURS SUBQ 04/13/20 09:00 07/10/20 20:59 04/13/20 12:53 Insulin Aspart (NovoLOG) 6 units EVERY 4 HOURS SUBQ 04/13/20 09:00 07/12/20 08:59 04/13/20 12:53 Labetalol HCl (Normodyne) 20 mg Q1H PRN IV sbo more than 180 04/12/20 19:00 05/12/20 12:59 Lorazepam (Ativan 2mg/ml 1ml) 1 mg Q1H PRN IV For Anxiety 04/13/20 14:00 04/20/20 13:59 Methylprednisolone Sodium Succinate (Solu-MEDROL) 60 mg EVERY 6 HOURS IV 04/13/20 13:45 07/12/20 13:44 04/13/20 14:56 Morphine Sulfate (Morphine Sulfate) 2 mg Q2H PRN IVP For Pain 04/13/20 14:00 04/20/20 13:59 Ondansetron HCl (Zofran) 4 mg Q6H PRN IVP Nausea & Vomiting 04/12/20 19:00 05/11/20 18:59 Remdesivir 100 mg/ Sodium Chloride 250 ml @ 250 mls/hr Q24H IV 04/13/20 20:00 04/16/20 20:59 Sodium Chloride 1,000 ml @ 50 mls/hr Q20H IV 04/13/20 13:45 05/12/20 13:44 04/13/20 14:53 Allergies: Coded Allergies: CODEINE (Verified Allergy, Unknown, 04/11/20) PENICILLINS (Verified Allergy, Unknown, 04/11/20) Uncoded Allergies: SULFA (Allergy, Unknown, 04/11/20) ROS Limited/Unobtainable: Yes Subjective 70 YO M admitted with respiratory failure. Now COVID 19 pneumonia. Cover for [facility] Med-DR Barrios. ICU. BIPAP Objective Last Vital Signs Date Time Temp Pulse Resp B/P (MAP) Pulse Ox O2 Delivery O2 Flow Rate FiO2 04/13/20 13:00 124 34 131/88 (102) 87 04/13/20 12:00 100 04/13/20 12:00 98.7 04/13/20 12:00 Bi-pap 04/13/20 00:00 General Appearance: WD/WN, no apparent distress, alert EENT: PERRL/EOMI, normal ENT inspection Neck: non-tender, normal alignment, supple, normal inspection Cardiovascular: normal peripheral pulses, normal rate, regular rhythm, no gallop/murmur, no JVD Respiratory/Chest: respiratory distress, crackles/rales, rhonchi - bilaterally , expiratory wheezing Abdomen: normal bowel sounds, non tender, soft, no organomegaly, no mass Extremities: normal range of motion, non-tender 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 Skin: normal pigmentation, warm/dry Laboratory Tests Test 7/31/20 17:12 04/13/20 03:40 04/13/20 09:17 POC Whole Blood Glucose 441 MG/DL (74-106) H 334 MG/DL (74-106) H White Blood Count 12.2 K/UL (4.8-10.8) H Red Blood Count 4.36 M/UL (4.70-6.10) L Hemoglobin 13.4 G/DL (14.2-18.0) L Hematocrit 40.7 % (42.0-52.0) L Mean Corpuscular Volume 93 FL (80-99) Mean Corpuscular Hemoglobin 30.7 PG (27.0-31.0) Mean Corpuscular Hemoglobin Concent 32.9 G/DL (32.0-36.0) Red Cell Distribution Width 13.9 % (11.6-14.8) Platelet Count 168 K/UL (150-450) Mean Platelet Volume 7.3 FL (6.5-10.1) Neutrophils (%) (Auto) % (45.0-75.0) Lymphocytes (%) (Auto) % (20.0-45.0) Monocytes (%) (Auto) % (1.0-10.0) Eosinophils (%) (Auto) % (0.0-3.0) Basophils (%) (Auto) % (0.0-2.0) Differential Total Cells Counted 100 Neutrophils % (Manual) 74 % (45-75) Lymphocytes % (Manual) 10 % (20-45) L Monocytes % (Manual) 16 % (1-10) H Eosinophils % (Manual) 0 % (0-3) Basophils % (Manual) 0 % (0-2) Band Neutrophils 0 % (0-8) Platelet Estimate Adequate Platelet Morphology Normal Red Blood Cell Morphology Normal Fibrinogen 424 mg/dL (200-400) H D-Dimer 7.11 mg/L FEU (0.00-0.49) H Sodium Level 135 MMOL/L (136-145) L Potassium Level 4.0 MMOL/L (3.5-5.1) Chloride Level 98 MMOL/L (98-107) Carbon Dioxide Level 25 MMOL/L (21-32) Anion Gap 12 mmol/L (5-15) Blood Urea Nitrogen 62 mg/dL (7-18) H Creatinine 1.4 MG/DL (0.55-1.30) H Estimat Glomerular Filtration Rate 50.2 mL/min (>60) Glucose Level 366 MG/DL (74-106) H Hemoglobin A1c 9.8 % (4.3-6.0) H Uric Acid 9.1 MG/DL (2.6-7.2) H Calcium Level 8.1 MG/DL (8.5-10.1) L Phosphorus Level 1.9 MG/DL (2.5-4.9) L Magnesium Level 2.2 MG/DL (1.8-2.4) Iron Level 26 ug/dL (50-175) L Total Iron Binding Capacity 223 ug/dL (250-450) L Percent Iron Saturation 12 % (15-50) L Unsaturated Iron Binding 197 ug/dL (112-346) Ferritin 557 NG/ML (8-388) H Total Bilirubin 0.5 MG/DL (0.2-1.0) Direct Bilirubin 0.2 MG/DL (0.0-0.3) Gamma Glutamyl Transpeptidase 28 U/L (5-85) Aspartate Amino Transf (AST/SGOT) 48 U/L (15-37) H Alanine Aminotransferase (ALT/SGPT) 36 U/L (12-78) Alkaline Phosphatase 64 U/L (46-116) Lactate Dehydrogenase 839 U/L (81-234) H Troponin I 0.026 ng/mL (0.000-0.056) C-Reactive Protein, Quantitative 30.9 mg/dL (0.00-0.90) H Pro-B-Type Natriuretic Peptide 1387 pg/mL (0-125) H Total Protein 7.2 G/DL (6.4-8.2) Albumin 2.8 G/DL (3.4-5.0) L Globulin 4.4 g/dL Albumin/Globulin Ratio 0.6 (1.0-2.7) L Triglycerides Level 150 MG/DL (30-150) Cholesterol Level 80 MG/DL (< 200) LDL Cholesterol 48 mg/dL (<100) HDL Cholesterol 8 MG/DL (40-60) L Cholesterol/HDL Ratio 10.0 (3.3-4.4) H Vitamin B12 Level 1841 PG/ML (193-986) H Folate 8.5 NG/ML (8.6-58.9) L Thyroid Stimulating Hormone (TSH) 0.129 uiU/mL (0.358-3.740) Hepatitis A IgM Antibody Pending Hepatitis B Surface Antigen Pending Hepatitis B Core IgM Antibody Pending Hepatitis C Antibody Pending HIV (1&2) Antibody Rapid Negative (NEGATIVE) TB Test (T-Spot) Pending TB Test Nil Control (T-Spot) Pending TB Test Panel A (T-Spot) Pending TB Test Panel B (T-Spot) Pending TB Test Positive Control (T-Spot) Pending Microbiology Date/Time Source Procedure Growth Status 04/11/20 13:20 Blood Blood Culture - Preliminary NO GROWTH AFTER 24 HOURS Resulted 04/11/20 13:05 Blood Blood Culture - Preliminary NO GROWTH AFTER 24 HOURS Resulted 04/11/20 14:06 Nasopharynx SARS-CoV-2 RdRp Gene Assay - Final Complete 04/11/20 13:56 Nasal Nares MRSA Culture - Final Staphylococcus Aureus - Mrsa Complete 04/12/20 14:00 Urine,Clean Catch Urine Culture - Preliminary NO GROWTH Resulted 04/11/20 13:56 Rectum VRE Culture - Final NO VANCOMYCIN RESISTANT ENTEROCOCCUS ... Complete 04/11/20 13:56 Rectum - Final NO CARBAPENEM-RESISTANT ENTEROBACTERI... Complete Intake and Output 04/12/20 04/13/20 19:00 07:00 Intake Total 149.99 ml 998.26 ml Output Total 860 ml 720 ml Balance -710.01 ml 278.26 ml Intake Oral 50 ml IV Total 99.99 ml 998.26 ml Output Urine Total 860 ml 720 ml # Voids 2 # Bowel Movements 1 1 Assessment/Plan Assessment/Plan Assessment/Plan Assessment/Plan Status Narrative (1) Acute hypoxemic respiratory failure ICD Codes: J96.00 - Acute respiratory failure, SNOMED: 20759609 (2) Pneumonia due to COVID-19 virus ICD Codes: U07.1 - COVID-19; J12.89 - Other viral pneumonia SNOMED: 030489407, 671178819 (3) MORIAH (acute kidney injury) ICD Codes: N17.9 - Acute kidney failure, unspecified SNOMED: 98185915, 8937858 (4) History of hypertension ICD Codes: Z86.79 - Personal history of other diseases of the circulatory system SNOMED: 819299456 (5) History of CVA (cerebrovascular accident) ICD Codes: Z86.73 - Personal history of transient ischemic attack (TIA), and cerebral infarction without residual deficits SNOMED: 417217175 (6) Diabetes mellitus ICD Codes: E11.9 - Type 2 diabetes mellitus without complications SNOMED: 52617212 (7) morbid obesity. Assessment/Plan: in respiratory isolation respiratory treatment On BiPAP sliding scale diabetic diet monitor BP echocardiogram monitor laboratory and culture Antibiotics: Azithromycin On dexamethasone IV On Remdesivir CODE STATUS: Full code. DVT prophylaxis: Lovenox injection. Apr 12, 2020 20:06 Alex Mendez MD Apr 13, 2020 15:09
[2020-04-13] MEDS: Morphine Sulfate 2mg/ml Inj(IV/IM USE ONLY) IVP PRN (16:35)
--- NOTE | 2020-04-13 16:49 | Cardiology Progress Note ---
Assessment/Plan Assessment/Plan 1. Atrial fibrillation with rapid ventricular response. 2. Pulmonary infiltrates on a chest x-ray./ covid pneumonia 3. History of recent COVID positive infection. 4. Coronary artery disease, status post percutaneous coronary intervention. 5. Diabetes mellitus. 6. Hypertension history. 7. Hyperlipidemia. 8. Obesity. 9. Respiratory insufficiency. tele sinus tachy ashley fib noted no new ekg on amiod drio now more than 18 hour will dc for now tomorrow will start oral amiod now dnr getting morphine for comfort as well cxr show dense infiltrates d/w rn Subjective ROS Limited/Unobtainable: Yes Subjective on bipap , now dnr per his request Objective Last 24 Hour Vital Signs Date Time Temp Pulse Resp B/P (MAP) Pulse Ox O2 Delivery O2 Flow Rate FiO2 04/13/20 16:13 100 04/13/20 16:13 124 04/13/20 16:00 126 39 129/51 (77) 76 04/13/20 15:30 127 39 127/57 (80) 76 04/13/20 15:05 128 40 85 100 04/13/20 15:00 128 39 132/60 (84) 76 04/13/20 14:30 125 39 129/55 (79) 80 04/13/20 14:00 128 39 132/52 (78) 84 04/13/20 13:00 124 34 131/88 (102) 87 04/13/20 12:30 123 38 125/76 (92) 84 04/13/20 12:00 100 04/13/20 12:00 98.7 123 39 149/62 (91) 86 04/13/20 12:00 123 04/13/20 12:00 Bi-pap 04/13/20 11:45 122 39 87 100 04/13/20 11:00 115 36 126/67 (86) 88 04/13/20 10:30 116 36 126/71 (89) 88 04/13/20 10:00 118 36 120/62 (81) 88 04/13/20 09:30 124 34 130/66 (87) 85 04/13/20 09:15 89 Bi-Pap 100 04/13/20 09:00 126 38 149/68 (95) 78 04/13/20 08:30 127 37 129/82 (98) 86 04/13/20 08:00 100.0 130 29 134/72 (92) 87 04/13/20 08:00 Bi-pap 04/13/20 08:00 100 04/13/20 08:00 119 04/13/20 07:51 128 43 89 100 04/13/20 07:00 127 35 154/79 (104) 87 04/13/20 06:30 125 37 139/68 (91) 84 04/13/20 06:30 122 37 140/67 (91) 85 04/13/20 06:00 98.9 123 37 145/69 (94) 84 04/13/20 05:30 121 33 170/68 (102) 83 04/13/20 05:00 120 35 156/65 (95) 87 04/13/20 04:30 120 37 157/66 (96) 86 04/13/20 04:00 113 04/13/20 04:00 100 04/13/20 04:00 Bi-pap 04/13/20 04:00 113 34 126/63 (84) 86 04/13/20 03:30 113 35 142/70 (94) 90 04/13/20 03:16 87 Bi-Pap 100 04/13/20 03:14 116 35 87 100 04/13/20 03:00 117 34 136/69 (91) 88 04/13/20 02:30 125 32 171/72 (105) 87 04/13/20 02:00 125 32 171/72 (105) 87 04/13/20 01:30 125 34 135/93 (107) 84 04/13/20 01:00 120 36 139/62 (87) 82 04/13/20 00:30 123 38 138/64 (88) 82 04/13/20 00:00 98.9 127 33 167/82 (110) 87 04/13/20 00:00 Bi-pap 04/12/20 23:08 87 Bi-Pap 100 04/12/20 23:06 122 36 87 100 04/12/20 23:00 123 37 145/80 (101) 86 04/12/20 23:00 123 37 145/80 (101) 86 04/12/20 22:30 121 35 142/65 (90) 89 04/12/20 22:00 125 34 147/83 (104) 80 7/31/20 21:30 125 33 143/76 (98) 88 04/12/20 21:00 129 27 101/85 (90) 86 04/12/20 20:30 117 32 122/68 (86) 91 04/12/20 20:15 117 33 123/67 (85) 90 04/12/20 20:00 100 04/12/20 20:00 116 04/12/20 20:00 Bi-pap 04/12/20 20:00 116 31 113/64 (80) 90 04/12/20 19:30 117 31 119/70 (86) 91 04/12/20 19:03 92 Bi-Pap 100 04/12/20 19:02 142 35 92 100 04/12/20 19:00 98.7 121 32 165/65 (98) 86 04/12/20 18:35 117 28 111/63 (79) 90 04/12/20 18:00 124 28 123/86 (98) 90 04/12/20 17:30 116 34 131/65 (87) 93 04/12/20 17:02 97.1 113 33 136/68 (90) 94 General Appearance: no apparent distress, patient on isolation, isolation precautions, other - bipap Intake and Output 04/12/20 04/13/20 19:00 07:00 Intake Total 149.99 ml 998.26 ml Output Total 860 ml 720 ml Balance -710.01 ml 278.26 ml Intake Oral 50 ml IV Total 99.99 ml 998.26 ml Output Urine Total 860 ml 720 ml # Voids 2 # Bowel Movements 1 1 Laboratory Tests Test 04/12/20 17:12 04/13/20 03:40 04/13/20 09:17 POC Whole Blood Glucose 441 MG/DL (74-106) H 334 MG/DL (74-106) H White Blood Count 12.2 K/UL (4.8-10.8) H Red Blood Count 4.36 M/UL (4.70-6.10) L Hemoglobin 13.4 G/DL (14.2-18.0) L Hematocrit 40.7 % (42.0-52.0) L Mean Corpuscular Volume 93 FL (80-99) Mean Corpuscular Hemoglobin 30.7 PG (27.0-31.0) Mean Corpuscular Hemoglobin Concent 32.9 G/DL (32.0-36.0) Red Cell Distribution Width 13.9 % (11.6-14.8) Platelet Count 168 K/UL (150-450) Mean Platelet Volume 7.3 FL (6.5-10.1) Neutrophils (%) (Auto) % (45.0-75.0) Lymphocytes (%) (Auto) % (20.0-45.0) Monocytes (%) (Auto) % (1.0-10.0) Eosinophils (%) (Auto) % (0.0-3.0) Basophils (%) (Auto) % (0.0-2.0) Differential Total Cells Counted 100 Neutrophils % (Manual) 74 % (45-75) Lymphocytes % (Manual) 10 % (20-45) L Monocytes % (Manual) 16 % (1-10) H Eosinophils % (Manual) 0 % (0-3) Basophils % (Manual) 0 % (0-2) Band Neutrophils 0 % (0-8) Platelet Estimate Adequate Platelet Morphology Normal Red Blood Cell Morphology Normal Fibrinogen 424 mg/dL (200-400) H D-Dimer 7.11 mg/L FEU (0.00-0.49) H Sodium Level 135 MMOL/L (136-145) L Potassium Level 4.0 MMOL/L (3.5-5.1) Chloride Level 98 MMOL/L (98-107) Carbon Dioxide Level 25 MMOL/L (21-32) Anion Gap 12 mmol/L (5-15) Blood Urea Nitrogen 62 mg/dL (7-18) H Creatinine 1.4 MG/DL (0.55-1.30) H Estimat Glomerular Filtration Rate 50.2 mL/min (>60) Glucose Level 366 MG/DL (74-106) H Hemoglobin A1c 9.8 % (4.3-6.0) H Uric Acid 9.1 MG/DL (2.6-7.2) H Calcium Level 8.1 MG/DL (8.5-10.1) L Phosphorus Level 1.9 MG/DL (2.5-4.9) L Magnesium Level 2.2 MG/DL (1.8-2.4) Iron Level 26 ug/dL (50-175) L Total Iron Binding Capacity 223 ug/dL (250-450) L Percent Iron Saturation 12 % (15-50) L Unsaturated Iron Binding 197 ug/dL (112-346) Ferritin 557 NG/ML (8-388) H Total Bilirubin 0.5 MG/DL (0.2-1.0) Direct Bilirubin 0.2 MG/DL (0.0-0.3) Gamma Glutamyl Transpeptidase 28 U/L (5-85) Aspartate Amino Transf (AST/SGOT) 48 U/L (15-37) H Alanine Aminotransferase (ALT/SGPT) 36 U/L (12-78) Alkaline Phosphatase 64 U/L (46-116) Lactate Dehydrogenase 839 U/L (81-234) H Troponin I 0.026 ng/mL (0.000-0.056) C-Reactive Protein, Quantitative 30.9 mg/dL (0.00-0.90) H Pro-B-Type Natriuretic Peptide 1387 pg/mL (0-125) H Total Protein 7.2 G/DL (6.4-8.2) Albumin 2.8 G/DL (3.4-5.0) L Globulin 4.4 g/dL Albumin/Globulin Ratio 0.6 (1.0-2.7) L Triglycerides Level 150 MG/DL (30-150) Cholesterol Level 80 MG/DL (< 200) LDL Cholesterol 48 mg/dL (<100) HDL Cholesterol 8 MG/DL (40-60) L Cholesterol/HDL Ratio 10.0 (3.3-4.4) H Vitamin B12 Level 1841 PG/ML (193-986) H Folate 8.5 NG/ML (8.6-58.9) L Thyroid Stimulating Hormone (TSH) 0.129 uiU/mL (0.358-3.740) Hepatitis A IgM Antibody Pending Hepatitis B Surface Antigen Pending Hepatitis B Core IgM Antibody Pending Hepatitis C Antibody Pending HIV (1&2) Antibody Rapid Negative (NEGATIVE) TB Test (T-Spot) Pending TB Test Nil Control (T-Spot) Pending TB Test Panel A (T-Spot) Pending TB Test Panel B (T-Spot) Pending TB Test Positive Control (T-Spot) Pending Microbiology Date/Time Source Procedure Growth Status 04/11/20 13:20 Blood Blood Culture - Preliminary NO GROWTH AFTER 24 HOURS Resulted 04/11/20 13:05 Blood Blood Culture - Preliminary NO GROWTH AFTER 24 HOURS Resulted 04/11/20 14:06 Nasopharynx SARS-CoV-2 RdRp Gene Assay - Final Complete 04/11/20 13:56 Nasal Nares MRSA Culture - Final Staphylococcus Aureus - Mrsa Complete 04/12/20 14:00 Urine,Clean Catch Urine Culture - Preliminary NO GROWTH Resulted 04/11/20 13:56 Rectum VRE Culture - Final NO VANCOMYCIN RESISTANT ENTEROCOCCUS ... Complete 04/11/20 13:56 Rectum - Final NO CARBAPENEM-RESISTANT ENTEROBACTERI... Complete Objective on vent in midl repitratyr distress tachy on tele sta down to 73% per rn all day this am in face mask bipap Romeo Thomas MD Apr 13, 2020 16:49
[2020-04-13] MEDS ORDERED: Maintenance Dose:Remdesivir 100mg/NS 230ml x 4 Doses IV SCH ×2 (17:00)
[2020-04-13] MEDS ORDERED: IV Preparation Fee MISC PRN (17:00)
[2020-04-13] MEDS ORDERED: Acetaminophen 650 MG SUPP RECTAL PRN (20:15)
[2020-04-13] MEDS: Remdesivir 100mg 100 MG in NS 230 ML IV SCH (20:56)
[2020-04-13] MEDS: Azithromycin 250 MG in NS 275 ML IV SCH (21:52)
[2020-04-14] VITALS (33 sets, daily range): BP systolic 110–174; BP diastolic 54–91
[2020-04-14] MEDS: NovoLOG Insulin Flexpen SUBQ SCH ×12 (00:43→20:48)
[2020-04-14] MEDS ORDERED: Acetaminophen 650 MG SUPP RECTAL PRN (05:15)
[2020-04-14] MEDS: Solu-MEDROL 125mg Inj IV SCH (05:49)
[2020-04-14 06:17] LABS: HEMATOCRIT 38.4 % (42.0-52.0); HEMOGLOBIN 12.5 G/DL (14.2-18.0); LYMPHOCYTES % (AUTO) 6.1 % (20.0-45.0); MEAN CORPUSCULAR VOLUME 95 FL (80-99); MONOCYTES % (AUTO) 11.4 % (1.0-10.0); NEUTROPHILS % (AUTO) 81.5 % (45.0-75.0); PLATELET COUNT 165 K/UL (150-450); RED BLOOD COUNT 4.06 M/UL (4.70-6.10); RED CELL DISTRIBUTION WIDTH 14.4 % (11.6-14.8); WHITE BLOOD COUNT 6.1 K/UL (4.8-10.8)
[2020-04-14 06:33] LABS: ALANINE AMINOTRANSFERASE 29 U/L (12-78); ALBUMIN 2.4 G/DL (3.4-5.0); ALBUMIN/GLOBULIN RATIO 0.5 (1.0-2.7); ALKALINE PHOSPHATASE 57 U/L (46-116); ANION GAP 9 mmol/L (5-15); ASPARTATE AMINO TRANSFERASE 45 U/L (15-37); BILIRUBIN,DIRECT 0.2 MG/DL (0.0-0.3); BILIRUBIN,TOTAL 0.4 MG/DL (0.2-1.0); BLOOD UREA NITROGEN 81 mg/dL (7-18); CALCIUM 7.9 MG/DL (8.5-10.1); CARBON DIOXIDE 28 MMOL/L (21-32); CHLORIDE 107 MMOL/L (98-107); CREATININE 1.7 MG/DL (0.55-1.30); POTASSIUM 4.2 MMOL/L (3.5-5.1); SODIUM 144 MMOL/L (136-145)
[2020-04-14 06:48] LABS: CREATINE KINASE 51 U/L (26-308); GAMMA GLUTAMYL TRANSPEPTIDASE 31 U/L (5-85)
--- NOTE | 2020-04-14 07:08 | General Progress Note ---
Assessment/Plan Problem List: (1) COVID-19 ICD Codes: U07.1 - COVID-19 SNOMED: 543691436 (2) MORIAH (acute kidney injury) ICD Codes: N17.9 - Acute kidney failure, unspecified SNOMED: 62956367, 2648780 (3) Diabetes mellitus ICD Codes: E11.9 - Type 2 diabetes mellitus without complications SNOMED: 33161447 Assessment/Plan: increase Novolog to 10 units every 4 hours continue Novolog sliding scale every 4 hours Subjective ROS Limited/Unobtainable: Yes Allergies: Coded Allergies: CODEINE (Verified Allergy, Unknown, 04/11/20) PENICILLINS (Verified Allergy, Unknown, 04/11/20) Uncoded Allergies: SULFA (Allergy, Unknown, 04/11/20) Subjective events noted on BIPAP in ICU DNI per patient request glucose values improved but still elevated Item Value Date Time Bedside Blood Glucose 250 mg/dl H 04/14/20 0550 Bedside Blood Glucose 271 mg/dl H 04/14/20 0045 Bedside Blood Glucose 300 mg/dl H 04/13/20 2154 Bedside Blood Glucose 230 mg/dl H 04/13/20 1808 Bedside Blood Glucose 323 mg/dl H 04/13/20 1457 Bedside Blood Glucose 332 mg/dl H 04/13/20 0942 Bedside Blood Glucose 368 mg/dl H 04/13/20 0556 Objective Last 24 Hour Vital Signs Date Time Temp Pulse Resp B/P (MAP) Pulse Ox O2 Delivery O2 Flow Rate FiO2 04/14/20 05:00 97 26 123/62 (82) 88 04/14/20 04:30 98 30 136/58 (84) 89 04/14/20 04:00 100 04/14/20 04:00 97 04/14/20 04:00 Bi-pap 04/14/20 04:00 99.0 98 26 118/63 (81) 91 04/14/20 03:00 99 28 117/60 (79) 92 04/14/20 02:58 102 29 91 100 04/14/20 02:00 101 28 113/59 (77) 83 04/14/20 01:30 102 28 118/64 (82) 85 04/14/20 01:00 101 29 124/55 (78) 87 04/14/20 00:30 102 29 122/58 (79) 86 04/14/20 00:00 102 04/14/20 00:00 100 04/14/20 00:00 Bi-pap 04/14/20 00:00 99.4 105 30 121/56 (77) 85 04/13/20 23:52 99.4 04/13/20 23:51 112 34 134/65 (88) 81 04/13/20 23:30 107 30 120/59 (79) 89 04/13/20 23:17 109 29 86 100 04/13/20 23:00 109 31 134/54 (80) 87 04/13/20 22:00 113 32 121/54 (76) 86 04/13/20 21:00 114 33 115/54 (74) 84 04/13/20 20:00 Bi-pap 04/13/20 20:00 99.4 118 33 118/51 (73) 87 04/13/20 20:00 110 04/13/20 20:00 100 04/13/20 19:10 80 Bi-Pap 100 04/13/20 19:10 120 34 80 100 04/13/20 19:00 120 34 115/51 (72) 79 04/13/20 18:00 125 36 124/88 (100) 68 04/13/20 17:05 98.7 04/13/20 17:03 123 37 122/48 (72) 74 04/13/20 16:30 125 37 103/52 (69) 74 04/13/20 16:13 100 04/13/20 16:13 124 04/13/20 16:00 126 39 129/51 (77) 76 04/13/20 16:00 Bi-pap 04/13/20 15:30 127 39 127/57 (80) 76 04/13/20 15:05 128 40 85 100 04/13/20 15:00 128 39 132/60 (84) 76 04/13/20 14:30 125 39 129/55 (79) 80 04/13/20 14:00 128 39 132/52 (78) 84 04/13/20 13:00 124 34 131/88 (102) 87 04/13/20 12:30 123 38 125/76 (92) 84 04/13/20 12:00 100 04/13/20 12:00 98.7 123 39 149/62 (91) 86 04/13/20 12:00 123 04/13/20 12:00 Bi-pap 04/13/20 11:45 122 39 87 100 04/13/20 11:00 115 36 126/67 (86) 88 04/13/20 10:30 116 36 126/71 (89) 88 04/13/20 10:00 118 36 120/62 (81) 88 04/13/20 09:30 124 34 130/66 (87) 85 04/13/20 09:15 89 Bi-Pap 100 04/13/20 09:00 126 38 149/68 (95) 78 04/13/20 08:30 127 37 129/82 (98) 86 04/13/20 08:00 100.0 130 29 134/72 (92) 87 04/13/20 08:00 Bi-pap 04/13/20 08:00 100 04/13/20 08:00 119 04/13/20 07:51 128 43 89 100 Intake and Output 04/13/20 04/14/20 19:00 07:00 Intake Total 1041.1585 ml 1025 ml Output Total 455 ml 345 ml Balance 586.1585 ml 680 ml IV Total 1041.1585 ml 1025 ml Output Urine Total 455 ml 345 ml Laboratory Tests 04/13/20 09:17: POC Whole Blood Glucose 334H 04/14/20 05:30: White Blood Count 6.1, Red Blood Count 4.06L, Hemoglobin 12.5L, Hematocrit 38.4L , Mean Corpuscular Volume 95, Mean Corpuscular Hemoglobin 30.7, Mean Corpuscular Hemoglobin Concent 32.4, Red Cell Distribution Width 14.4, Platelet Count 165, Mean Platelet Volume 7.9, Neutrophils (%) (Auto) 81.5H, Lymphocytes ( %) (Auto) 6.1L, Monocytes (%) (Auto) 11.4H, Eosinophils (%) (Auto) 0.0, Basophils (%) (Auto) 1.0, Sodium Level 144, Potassium Level 4.2, Chloride Level 107, Carbon Dioxide Level 28, Anion Gap 9, Blood Urea Nitrogen 81H, Creatinine 1.7H, Estimat Glomerular Filtration Rate 40.2, Glucose Level 265#H, Uric Acid [ Pending], Calcium Level 7.9L, Phosphorus Level [Pending], Magnesium Level [ Pending], Total Bilirubin 0.4, Direct Bilirubin 0.2, Gamma Glutamyl Transpeptidase [Pending], Aspartate Amino Transf (AST/SGOT) 45H, Alanine Aminotransferase (ALT/SGPT) 29, Alkaline Phosphatase 57, Total Creatine Kinase [ Pending], C-Reactive Protein, Quantitative [Pending], Pro-B-Type Natriuretic Peptide [Pending], Total Protein 7.0, Albumin 2.4L, Globulin 4.6, Albumin/ Globulin Ratio 0.5L Height (Feet): 5 Height (Inches): 9.00 Weight (Pounds): 221 Objective Current Medications Medications (Trade) Dose Ordered Sig/Lopez Route PRN Reason Start Time Stop Time Status Last Admin Dose Admin Acetaminophen (Tylenol) 650 mg Q4H PRN RECTAL Mild Pain (Pain Scale 1-3) 04/13/20 20:15 05/13/20 20:14 04/13/20 23:22 Acetaminophen (Tylenol) 650 mg Q4H PRN RECTAL Temp >100.5 04/14/20 05:15 05/14/20 05:14 Albuterol/ Ipratropium (Albuterol/ Ipratropium) 3 ml Q4H PRN HHN Shortness of Breath 04/12/20 19:00 04/16/20 18:59 Azithromycin 250 mg/Sodium Chloride 275 ml @ 275 mls/hr Q24HRS IV 04/13/20 21:00 04/18/20 20:59 04/13/20 21:52 Dextrose (Dextrose 50%) 25 ml Q30M PRN IV Hypoglycemia 04/12/20 18:45 07/10/20 20:44 Dextrose (Dextrose 50%) 50 ml Q30M PRN IV Hypoglycemia 04/12/20 18:45 07/10/20 20:44 Enoxaparin Sodium (Lovenox) 100 mg EVERY 12 HOURS SUBQ 04/12/20 21:00 07/11/20 20:59 04/13/20 20:57 Guaifenesin (Robitussin) 100 mg Q4H PRN ORAL For Cough 04/12/20 19:00 07/10/20 18:59 Hydralazine HCl (Apresoline) 10 mg Q4H PRN IV sbp more than 160 04/13/20 14:00 07/11/20 13:59 Insulin Aspart (NovoLOG) EVERY 4 HOURS SUBQ 04/13/20 09:00 07/10/20 20:59 04/14/20 05:50 Insulin Aspart (NovoLOG) 6 units EVERY 4 HOURS SUBQ 04/13/20 09:00 07/12/20 08:59 04/14/20 05:50 Labetalol HCl (Normodyne) 20 mg Q1H PRN IV sbo more than 180 04/12/20 19:00 05/12/20 12:59 Lorazepam (Ativan 2mg/ml 1ml) 1 mg Q1H PRN IV For Anxiety 04/13/20 14:00 04/20/20 13:59 04/13/20 16:34 Methylprednisolone Sodium Succinate (Solu-MEDROL) 60 mg EVERY 6 HOURS IV 04/13/20 13:45 07/12/20 13:44 04/14/20 05:49 Morphine Sulfate (Morphine Sulfate) 2 mg Q2H PRN IVP For Pain 04/13/20 14:00 04/20/20 13:59 04/13/20 16:35 Ondansetron HCl (Zofran) 4 mg Q6H PRN IVP Nausea & Vomiting 04/12/20 19:00 05/11/20 18:59 Remdesivir 100 mg/ Sodium Chloride 250 ml @ 250 mls/hr Q24H IV 04/13/20 20:00 04/16/20 20:59 04/13/20 20:56 Sodium Chloride 1,000 ml @ 50 mls/hr Q20H IV 04/13/20 13:45 05/12/20 13:44 04/13/20 14:53 Maurice Larry MD Apr 14, 2020 07:08
[2020-04-14] MEDS ORDERED: NS 275ml ONE (09:52)
--- NOTE | 2020-04-14 10:00 | Diagnostic Imaging Report ---
EXAM: XR Chest, 1 View CLINICAL HISTORY: DYSPNEA TECHNIQUE: Frontal view of the chest. COMPARISON: Chest x-rays dated December 12 and 04/11/20 FINDINGS: Lungs: Continued interval worsening of extensive bilateral interstitial markings and patchy opacities, concerning for worsening pneumonia versus ARDS. Pleural space: Unremarkable. The costophrenic angles are sharp. No visible pneumothorax. Heart: Borderline cardiomegaly. Mediastinum: Unremarkable. Bones/joints: Unremarkable. Vasculature: Atherosclerotic calcifications are noted within the aortic arch. Tubes, lines and devices: Telemetry leads overlie the thorax. IMPRESSION: Continued interval worsening of extensive bilateral interstitial markings and patchy opacities, concerning for worsening pneumonia versus ARDS.
[2020-04-14] MEDS: Enoxaparin 100mg Inj SUBQ SCH ×2 (10:01→20:44)
--- NOTE | 2020-04-14 10:01 | Infectious Diseases Prog Note ---
Assessment/Plan Abx: Ceftriaxone x1 04/11 Azithromycin 04/11- Levaquin x1 04/11 Assessment: COVID19 pneumonia Acute hypoxic resp failure- on HF 60L, FIo2 100%> Bipap 100% 04/12 -04/11 D-dimer 4.24, LDH 595, ferritin 476, CRP 41.5 Rapid COVID PCR + CXR: Bilateral infiltrates. Afebrile Mild leukocytosis Thrombocytopenia Lactic acidosis, SP MORIAH Elevated AST HTN Dm2 CAD s/p stent CVA [place] resident ([facility]) Plan: -Restart CTX 1g IV daily for possible superinfection given critical illness -Cont azithromycin #4/5 -Stop solumedrol 60mg IV q6hrs -Start dexamethasone 6mg IV daily for COVID (day 4 of steroids) -Cont Remdesevir per protocol x5 day course -Would like to start Tocilizumab- request sent to COVID19 committee; awaiting approval and availability -F/u cx -Monitor CBC/CMP, temperatures -COVID19 isolation and testing -Monitor inflammatory markers and CXR -ICU care Thank you for this consultation. Will continue to follow along with you. Discussed with RN. Subjective Allergies: Coded Allergies: CODEINE (Verified Allergy, Unknown, 04/11/20) PENICILLINS (Verified Allergy, Unknown, 04/11/20) Uncoded Allergies: SULFA (Allergy, Unknown, 04/11/20) AF Remains on BiPAP, refusing intubation, now DNR/DNI Satting 86% Objective Last 24 Hour Vital Signs Date Time Temp Pulse Resp B/P (MAP) Pulse Ox O2 Delivery O2 Flow Rate FiO2 04/14/20 07:12 100 19 85 100 04/14/20 07:12 86 Bi-Pap 100 04/14/20 07:00 99 24 116/60 (78) 84 04/14/20 06:30 97 25 125/55 (78) 87 04/14/20 06:00 97 25 115/66 (82) 87 04/14/20 05:30 98 26 130/71 (90) 87 04/14/20 05:00 97 26 123/62 (82) 88 04/14/20 04:30 98 30 136/58 (84) 89 04/14/20 04:00 100 04/14/20 04:00 97 04/14/20 04:00 Bi-pap 04/14/20 04:00 99.0 98 26 118/63 (81) 91 04/14/20 03:00 99 28 117/60 (79) 92 04/14/20 02:58 102 29 91 100 04/14/20 02:00 101 28 113/59 (77) 83 04/14/20 01:30 102 28 118/64 (82) 85 04/14/20 01:00 101 29 124/55 (78) 87 04/14/20 00:30 102 29 122/58 (79) 86 04/14/20 00:00 102 04/14/20 00:00 100 04/14/20 00:00 Bi-pap 04/14/20 00:00 99.4 105 30 121/56 (77) 85 04/13/20 23:52 99.4 04/13/20 23:51 112 34 134/65 (88) 81 04/13/20 23:30 107 30 120/59 (79) 89 04/13/20 23:17 109 29 86 100 04/13/20 23:00 109 31 134/54 (80) 87 04/13/20 22:00 113 32 121/54 (76) 86 04/13/20 21:00 114 33 115/54 (74) 84 04/13/20 20:00 Bi-pap 04/13/20 20:00 99.4 118 33 118/51 (73) 87 04/13/20 20:00 110 04/13/20 20:00 100 04/13/20 19:10 80 Bi-Pap 100 04/13/20 19:10 120 34 80 100 04/13/20 19:00 120 34 115/51 (72) 79 04/13/20 18:00 125 36 124/88 (100) 68 04/13/20 17:05 98.7 04/13/20 17:03 123 37 122/48 (72) 74 04/13/20 16:30 125 37 103/52 (69) 74 04/13/20 16:13 100 04/13/20 16:13 124 04/13/20 16:00 126 39 129/51 (77) 76 04/13/20 16:00 Bi-pap 04/13/20 15:30 127 39 127/57 (80) 76 04/13/20 15:05 128 40 85 100 8/1/20 15:00 128 39 132/60 (84) 76 04/13/20 14:30 125 39 129/55 (79) 80 04/13/20 14:00 128 39 132/52 (78) 84 04/13/20 13:00 124 34 131/88 (102) 87 04/13/20 12:30 123 38 125/76 (92) 84 04/13/20 12:00 100 04/13/20 12:00 98.7 123 39 149/62 (91) 86 04/13/20 12:00 123 04/13/20 12:00 Bi-pap 04/13/20 11:45 122 39 87 100 04/13/20 11:00 115 36 126/67 (86) 88 04/13/20 10:30 116 36 126/71 (89) 88 04/13/20 10:00 118 36 120/62 (81) 88 Height (Feet): 5 Height (Inches): 9.00 Weight (Pounds): 221 Gen: Older man, NAD on BiPAP Pulm: BL chest rise on BiPAP Abd: Non-distended Ext: No c/c Skin: No visible rashes Microbiology Date/Time Source Procedure Growth Status 04/11/20 13:20 Blood Blood Culture - Preliminary NO GROWTH AFTER 48 HOURS Resulted 04/11/20 13:05 Blood Blood Culture - Preliminary NO GROWTH AFTER 48 HOURS Resulted 04/11/20 14:06 Nasopharynx SARS-CoV-2 RdRp Gene Assay - Final Complete 04/11/20 13:56 Nasal Nares MRSA Culture - Final Staphylococcus Aureus - Mrsa Complete 04/12/20 14:00 Urine,Clean Catch Urine Culture - Preliminary NO GROWTH AFTER 24 HOURS Resulted 04/11/20 13:56 Rectum VRE Culture - Final NO VANCOMYCIN RESISTANT ENTEROCOCCUS ... Complete 04/11/20 13:56 Rectum - Final NO CARBAPENEM-RESISTANT ENTEROBACTERI... Complete Laboratory Tests Test 04/14/20 05:30 04/14/20 07:00 White Blood Count 6.1 K/UL (4.8-10.8) Red Blood Count 4.06 M/UL (4.70-6.10) L Hemoglobin 12.5 G/DL (14.2-18.0) L Hematocrit 38.4 % (42.0-52.0) L Mean Corpuscular Volume 95 FL (80-99) Mean Corpuscular Hemoglobin 30.7 PG (27.0-31.0) Mean Corpuscular Hemoglobin Concent 32.4 G/DL (32.0-36.0) Red Cell Distribution Width 14.4 % (11.6-14.8) Platelet Count 165 K/UL (150-450) Mean Platelet Volume 7.9 FL (6.5-10.1) Neutrophils (%) (Auto) 81.5 % (45.0-75.0) H Lymphocytes (%) (Auto) 6.1 % (20.0-45.0) L Monocytes (%) (Auto) 11.4 % (1.0-10.0) H Eosinophils (%) (Auto) 0.0 % (0.0-3.0) Basophils (%) (Auto) 1.0 % (0.0-2.0) Sodium Level 144 MMOL/L (136-145) Potassium Level 4.2 MMOL/L (3.5-5.1) Chloride Level 107 MMOL/L (98-107) Carbon Dioxide Level 28 MMOL/L (21-32) Anion Gap 9 mmol/L (5-15) Blood Urea Nitrogen 81 mg/dL (7-18) H Creatinine 1.7 MG/DL (0.55-1.30) H Estimat Glomerular Filtration Rate 40.2 mL/min (>60) Glucose Level 265 MG/DL (74-106) #H Uric Acid 10.2 MG/DL (2.6-7.2) H Calcium Level 7.9 MG/DL (8.5-10.1) L Phosphorus Level 3.0 MG/DL (2.5-4.9) Magnesium Level 2.5 MG/DL (1.8-2.4) H Total Bilirubin 0.4 MG/DL (0.2-1.0) Direct Bilirubin 0.2 MG/DL (0.0-0.3) Gamma Glutamyl Transpeptidase 31 U/L (5-85) Aspartate Amino Transf (AST/SGOT) 45 U/L (15-37) H Alanine Aminotransferase (ALT/SGPT) 29 U/L (12-78) Alkaline Phosphatase 57 U/L (46-116) Total Creatine Kinase 51 U/L (26-308) C-Reactive Protein, Quantitative 35.3 mg/dL (0.00-0.90) H Pro-B-Type Natriuretic Peptide 660 pg/mL (0-125) H Total Protein 7.0 G/DL (6.4-8.2) Albumin 2.4 G/DL (3.4-5.0) L Globulin 4.6 g/dL Albumin/Globulin Ratio 0.5 (1.0-2.7) L Arterial Blood pH 7.420 (7.350-7.450) Arterial Blood Partial Pressure CO2 37.2 mmHg (35.0-45.0) Arterial Blood Partial Pressure O2 51.8 mmHg (75.0-100.0) L Arterial Blood HCO3 23.6 mmol/L (22.0-26.0) Arterial Blood Oxygen Saturation 85.0 % (95-100) *L Arterial Blood Base Excess -0.6 (-2-2) Eliot Test Positive Current Medications Medications (Trade) Dose Ordered Sig/Lopez Route PRN Reason Start Time Stop Time Status Last Admin Dose Admin Acetaminophen (Tylenol) 650 mg Q4H PRN RECTAL Mild Pain (Pain Scale 1-3) 04/13/20 20:15 05/13/20 20:14 04/13/20 23:22 Acetaminophen (Tylenol) 650 mg Q4H PRN RECTAL Temp >100.5 04/14/20 05:15 05/14/20 05:14 Albuterol/ Ipratropium (Albuterol/ Ipratropium) 3 ml Q4H PRN HHN Shortness of Breath 04/12/20 19:00 04/16/20 18:59 Azithromycin 250 mg/Sodium Chloride 275 ml @ 275 mls/hr Q24HRS IV 04/13/20 21:00 04/18/20 20:59 04/13/20 21:52 Dexamethasone Sodium Phosphate (Decadron 10mg/ ml Inj) 6 mg DAILY IV 04/14/20 12:00 07/13/20 11:59 Dextrose (Dextrose 50%) 25 ml Q30M PRN IV Hypoglycemia 04/12/20 18:45 07/10/20 20:44 Dextrose (Dextrose 50%) 50 ml Q30M PRN IV Hypoglycemia 04/12/20 18:45 07/10/20 20:44 Enoxaparin Sodium (Lovenox) 100 mg EVERY 12 HOURS SUBQ 04/12/20 21:00 07/11/20 20:59 04/13/20 20:57 Guaifenesin (Robitussin) 100 mg Q4H PRN ORAL For Cough 04/12/20 19:00 07/10/20 18:59 Hydralazine HCl (Apresoline) 10 mg Q4H PRN IV sbp more than 160 04/13/20 14:00 07/11/20 13:59 Insulin Aspart (NovoLOG) EVERY 4 HOURS SUBQ 04/13/20 09:00 07/10/20 20:59 04/14/20 05:50 Insulin Aspart (NovoLOG) 10 units EVERY 4 HOURS SUBQ 04/14/20 09:00 07/12/20 08:59 Labetalol HCl (Normodyne) 20 mg Q1H PRN IV sbo more than 180 04/12/20 19:00 05/12/20 12:59 Lorazepam (Ativan 2mg/ml 1ml) 1 mg Q1H PRN IV For Anxiety 04/13/20 14:00 04/20/20 13:59 04/13/20 16:34 Morphine Sulfate (Morphine Sulfate) 2 mg Q2H PRN IVP For Pain 04/13/20 14:00 04/20/20 13:59 04/13/20 16:35 Ondansetron HCl (Zofran) 4 mg Q6H PRN IVP Nausea & Vomiting 04/12/20 19:00 05/11/20 18:59 Remdesivir 100 mg/ Sodium Chloride 250 ml @ 250 mls/hr Q24H IV 04/13/20 20:00 04/16/20 20:59 04/13/20 20:56 Sodium Chloride 1,000 ml @ 50 mls/hr Q20H IV 04/13/20 13:45 05/12/20 13:44 04/14/20 07:11 Lita Singh M.D. Apr 14, 2020 10:01
[2020-04-14] MEDS ORDERED: cefTRIAXone 1 GM in D5W 55 ML IVPB SCH (10:15)
[2020-04-14] MEDS ORDERED: dexAMETHasone 10mg/ml Inj IV SCH (12:00)
--- NOTE | 2020-04-14 12:08 | Cardiology Progress Note ---
Assessment/Plan Assessment/Plan 1. Atrial fibrillation with rapid ventricular response. 2. Pulmonary infiltrates on a chest x-ray./ covid pneumonia 3. History of recent COVID positive infection. 4. Coronary artery disease, status post percutaneous coronary intervention. 5. Diabetes mellitus. 6. Hypertension history. 7. Hyperlipidemia. 8. Obesity. 9. Respiratory insufficiency. tele sinus tachy no a fib noted no new ekg nto able to take any yesenia gastric meds now dnr refused intubation getting morphine for comfort as well cxr show dense infiltrates worsening d/w rn Subjective ROS Limited/Unobtainable: Yes Subjective on bipap , now dnr per his request , in isolation precautions per nursing note: Patient continue on BIPAP fi02 100% satting 92%. On P200 mattress for wound management. HOB elevated . bed locked, in lowest position, three side rails up. Airborne and contact isolation maintained and observed for Covid positive. no s/s of hypo/hyperglycemia. Objective Last 24 Hour Vital Signs Date Time Temp Pulse Resp B/P (MAP) Pulse Ox O2 Delivery O2 Flow Rate FiO2 04/14/20 10:38 104 32 84 100 04/14/20 10:00 107 29 127/60 (82) 86 04/14/20 09:00 101 23 129/67 (87) 85 04/14/20 08:00 Bi-pap 04/14/20 08:00 97.7 101 25 110/54 (72) 86 04/14/20 08:00 101 04/14/20 08:00 100 04/14/20 07:12 100 19 85 100 04/14/20 07:12 86 Bi-Pap 100 04/14/20 07:00 99 24 116/60 (78) 84 04/14/20 06:30 97 25 125/55 (78) 87 04/14/20 06:00 97 25 115/66 (82) 87 04/14/20 05:30 98 26 130/71 (90) 87 04/14/20 05:00 97 26 123/62 (82) 88 04/14/20 04:30 98 30 136/58 (84) 89 04/14/20 04:00 100 04/14/20 04:00 97 04/14/20 04:00 Bi-pap 04/14/20 04:00 99.0 98 26 118/63 (81) 91 04/14/20 03:00 99 28 117/60 (79) 92 04/14/20 02:58 102 29 91 100 04/14/20 02:00 101 28 113/59 (77) 83 04/14/20 01:30 102 28 118/64 (82) 85 04/14/20 01:00 101 29 124/55 (78) 87 04/14/20 00:30 102 29 122/58 (79) 86 04/14/20 00:00 102 04/14/20 00:00 100 04/14/20 00:00 Bi-pap 04/14/20 00:00 99.4 105 30 121/56 (77) 85 04/13/20 23:52 99.4 04/13/20 23:51 112 34 134/65 (88) 81 04/13/20 23:30 107 30 120/59 (79) 89 04/13/20 23:17 109 29 86 100 04/13/20 23:00 109 31 134/54 (80) 87 04/13/20 22:00 113 32 121/54 (76) 86 04/13/20 21:00 114 33 115/54 (74) 84 04/13/20 20:00 Bi-pap 04/13/20 20:00 99.4 118 33 118/51 (73) 87 04/13/20 20:00 110 04/13/20 20:00 100 04/13/20 19:10 80 Bi-Pap 100 04/13/20 19:10 120 34 80 100 04/13/20 19:00 120 34 115/51 (72) 79 04/13/20 18:00 125 36 124/88 (100) 68 04/13/20 17:05 98.7 04/13/20 17:03 123 37 122/48 (72) 74 04/13/20 16:30 125 37 103/52 (69) 74 04/13/20 16:13 100 04/13/20 16:13 124 04/13/20 16:00 126 39 129/51 (77) 76 04/13/20 16:00 Bi-pap 04/13/20 15:30 127 39 127/57 (80) 76 04/13/20 15:05 128 40 85 100 04/13/20 15:00 128 39 132/60 (84) 76 04/13/20 14:30 125 39 129/55 (79) 80 04/13/20 14:00 128 39 132/52 (78) 84 04/13/20 13:00 124 34 131/88 (102) 87 04/13/20 12:30 123 38 125/76 (92) 84 General Appearance: mild distress, patient on isolation, isolation precautions - bipap Extremities: no swelling Intake and Output 04/13/20 04/14/20 19:00 07:00 Intake Total 1041.1585 ml 1025 ml Output Total 455 ml 380 ml Balance 586.1585 ml 645 ml IV Total 1041.1585 ml 1025 ml Output Urine Total 455 ml 380 ml Laboratory Tests Test 04/14/20 05:30 04/14/20 07:00 White Blood Count 6.1 K/UL (4.8-10.8) Red Blood Count 4.06 M/UL (4.70-6.10) L Hemoglobin 12.5 G/DL (14.2-18.0) L Hematocrit 38.4 % (42.0-52.0) L Mean Corpuscular Volume 95 FL (80-99) Mean Corpuscular Hemoglobin 30.7 PG (27.0-31.0) Mean Corpuscular Hemoglobin Concent 32.4 G/DL (32.0-36.0) Red Cell Distribution Width 14.4 % (11.6-14.8) Platelet Count 165 K/UL (150-450) Mean Platelet Volume 7.9 FL (6.5-10.1) Neutrophils (%) (Auto) 81.5 % (45.0-75.0) H Lymphocytes (%) (Auto) 6.1 % (20.0-45.0) L Monocytes (%) (Auto) 11.4 % (1.0-10.0) H Eosinophils (%) (Auto) 0.0 % (0.0-3.0) Basophils (%) (Auto) 1.0 % (0.0-2.0) Sodium Level 144 MMOL/L (136-145) Potassium Level 4.2 MMOL/L (3.5-5.1) Chloride Level 107 MMOL/L (98-107) Carbon Dioxide Level 28 MMOL/L (21-32) Anion Gap 9 mmol/L (5-15) Blood Urea Nitrogen 81 mg/dL (7-18) H Creatinine 1.7 MG/DL (0.55-1.30) H Estimat Glomerular Filtration Rate 40.2 mL/min (>60) Glucose Level 265 MG/DL (74-106) #H Uric Acid 10.2 MG/DL (2.6-7.2) H Calcium Level 7.9 MG/DL (8.5-10.1) L Phosphorus Level 3.0 MG/DL (2.5-4.9) Magnesium Level 2.5 MG/DL (1.8-2.4) H Total Bilirubin 0.4 MG/DL (0.2-1.0) Direct Bilirubin 0.2 MG/DL (0.0-0.3) Gamma Glutamyl Transpeptidase 31 U/L (5-85) Aspartate Amino Transf (AST/SGOT) 45 U/L (15-37) H Alanine Aminotransferase (ALT/SGPT) 29 U/L (12-78) Alkaline Phosphatase 57 U/L (46-116) Total Creatine Kinase 51 U/L (26-308) C-Reactive Protein, Quantitative 35.3 mg/dL (0.00-0.90) H Pro-B-Type Natriuretic Peptide 660 pg/mL (0-125) H Total Protein 7.0 G/DL (6.4-8.2) Albumin 2.4 G/DL (3.4-5.0) L Globulin 4.6 g/dL Albumin/Globulin Ratio 0.5 (1.0-2.7) L Arterial Blood pH 7.420 (7.350-7.450) Arterial Blood Partial Pressure CO2 37.2 mmHg (35.0-45.0) Arterial Blood Partial Pressure O2 51.8 mmHg (75.0-100.0) L Arterial Blood HCO3 23.6 mmol/L (22.0-26.0) Arterial Blood Oxygen Saturation 85.0 % (95-100) *L Arterial Blood Base Excess -0.6 (-2-2) Eliot Test Positive Microbiology Date/Time Source Procedure Growth Status 04/11/20 13:20 Blood Blood Culture - Preliminary NO GROWTH AFTER 48 HOURS Resulted 04/11/20 13:05 Blood Blood Culture - Preliminary NO GROWTH AFTER 48 HOURS Resulted 04/11/20 14:06 Nasopharynx SARS-CoV-2 RdRp Gene Assay - Final Complete 04/11/20 13:56 Nasal Nares MRSA Culture - Final Staphylococcus Aureus - Mrsa Complete 04/12/20 14:00 Urine,Clean Catch Urine Culture - Preliminary NO GROWTH AFTER 24 HOURS Resulted 04/11/20 13:56 Rectum VRE Culture - Final NO VANCOMYCIN RESISTANT ENTEROCOCCUS ... Complete 04/11/20 13:56 Rectum - Final NO CARBAPENEM-RESISTANT ENTEROBACTERI... Complete Objective on vent in midl repitratyr distress tachy on tele sta down to 73% per rn all day this am in face mask bipap Romeo Thomas MD Apr 14, 2020 12:08
--- NOTE | 2020-04-14 13:58 | Nephrology Progress Note ---
Assessment/Plan Problem List: (1) COVID-19 (2) MORIHA (acute kidney injury) Assessment: Serum creatinine lowered to 1.4 today (3) Diabetes mellitus (4) History of hypertension (5) History of CVA (cerebrovascular accident) (6) Acute respiratory failure Assessment MORIAH, multifactorial, most likely primarily due to sepsis. Serum creatinine up to 1.6 COVID-19 pneumonia, acute respiratory failure. Lactic acidosis, mild leukocytosis, thrombocytopenia, Elevated liver enzymes History of diabetes History of hypertension History of coronary artery disease status post stent placement CVA Lives in a long-term Plan April 14: Serum creatinine rising. Oxygenation poor on BiPAP. Patient DNR. According to the nurse the patient did not want to be intubated. Continue to monitor renal parameters. Previously: Brown catheter Parameters for blood pressure medication Antibiotics, avoid nephrotoxic's Decadron, Remdesevir, further management per ID Monitor renal parameters Hydration, increase normal saline to 75 cc an hour Per orders Subjective ROS Limited/Unobtainable: Yes Objective Objective Last 24 Hour Vital Signs Date Time Temp Pulse Resp B/P (MAP) Pulse Ox O2 Delivery O2 Flow Rate FiO2 04/14/20 12:00 98.0 104 24 145/72 (96) 84 04/14/20 12:00 100 04/14/20 12:00 Bi-pap 04/14/20 12:00 106 04/14/20 11:00 106 27 141/69 (93) 88 04/14/20 10:38 104 32 84 100 04/14/20 10:00 107 29 127/60 (82) 86 04/14/20 09:00 101 23 129/67 (87) 85 04/14/20 08:00 Bi-pap 04/14/20 08:00 97.7 101 25 110/54 (72) 86 04/14/20 08:00 101 04/14/20 08:00 100 04/14/20 07:12 100 19 85 100 04/14/20 07:12 86 Bi-Pap 100 04/14/20 07:00 99 24 116/60 (78) 84 04/14/20 06:30 97 25 125/55 (78) 87 04/14/20 06:00 97 25 115/66 (82) 87 04/14/20 05:30 98 26 130/71 (90) 87 04/14/20 05:00 97 26 123/62 (82) 88 04/14/20 04:30 98 30 136/58 (84) 89 04/14/20 04:00 100 04/14/20 04:00 97 04/14/20 04:00 Bi-pap 04/14/20 04:00 99.0 98 26 118/63 (81) 91 04/14/20 03:00 99 28 117/60 (79) 92 04/14/20 02:58 102 29 91 100 04/14/20 02:00 101 28 113/59 (77) 83 04/14/20 01:30 102 28 118/64 (82) 85 04/14/20 01:00 101 29 124/55 (78) 87 04/14/20 00:30 102 29 122/58 (79) 86 04/14/20 00:00 102 04/14/20 00:00 100 04/14/20 00:00 Bi-pap 04/14/20 00:00 99.4 105 30 121/56 (77) 85 04/13/20 23:52 99.4 04/13/20 23:51 112 34 134/65 (88) 81 04/13/20 23:30 107 30 120/59 (79) 89 04/13/20 23:17 109 29 86 100 04/13/20 23:00 109 31 134/54 (80) 87 04/13/20 22:00 113 32 121/54 (76) 86 04/13/20 21:00 114 33 115/54 (74) 84 04/13/20 20:00 Bi-pap 04/13/20 20:00 99.4 118 33 118/51 (73) 87 04/13/20 20:00 110 04/13/20 20:00 100 04/13/20 19:10 80 Bi-Pap 100 04/13/20 19:10 120 34 80 100 04/13/20 19:00 120 34 115/51 (72) 79 04/13/20 18:00 125 36 124/88 (100) 68 04/13/20 17:05 98.7 04/13/20 17:03 123 37 122/48 (72) 74 04/13/20 16:30 125 37 103/52 (69) 74 04/13/20 16:13 100 04/13/20 16:13 124 04/13/20 16:00 126 39 129/51 (77) 76 04/13/20 16:00 Bi-pap 04/13/20 15:30 127 39 127/57 (80) 76 04/13/20 15:05 128 40 85 100 04/13/20 15:00 128 39 132/60 (84) 76 04/13/20 14:30 125 39 129/55 (79) 80 04/13/20 14:00 128 39 132/52 (78) 84 Intake and Output 04/13/20 04/14/20 19:00 07:00 Intake Total 1041.1585 ml 1025 ml Output Total 455 ml 380 ml Balance 586.1585 ml 645 ml IV Total 1041.1585 ml 1025 ml Output Urine Total 455 ml 380 ml Laboratory Tests 04/13/20 23:42: POC Whole Blood Glucose [Pending] 04/14/20 05:30: White Blood Count 6.1, Red Blood Count 4.06L, Hemoglobin 12.5L, Hematocrit 38.4L , Mean Corpuscular Volume 95, Mean Corpuscular Hemoglobin 30.7, Mean Corpuscular Hemoglobin Concent 32.4, Red Cell Distribution Width 14.4, Platelet Count 165, Mean Platelet Volume 7.9, Neutrophils (%) (Auto) 81.5H, Lymphocytes ( %) (Auto) 6.1L, Monocytes (%) (Auto) 11.4H, Eosinophils (%) (Auto) 0.0, Basophils (%) (Auto) 1.0, Sodium Level 144, Potassium Level 4.2, Chloride Level 107, Carbon Dioxide Level 28, Anion Gap 9, Blood Urea Nitrogen 81H, Creatinine 1.7H, Estimat Glomerular Filtration Rate 40.2, Glucose Level 265#H, Uric Acid 10.2H, Calcium Level 7.9L, Phosphorus Level 3.0, Magnesium Level 2.5H, Total Bilirubin 0.4, Direct Bilirubin 0.2, Gamma Glutamyl Transpeptidase 31, Aspartate Amino Transf (AST/SGOT) 45H, Alanine Aminotransferase (ALT/SGPT) 29, Alkaline Phosphatase 57, Total Creatine Kinase 51, C-Reactive Protein, Quantitative 35.3H, Pro-B-Type Natriuretic Peptide 660H, Total Protein 7.0, Albumin 2.4L, Globulin 4.6, Albumin/Globulin Ratio 0.5L 04/14/20 07:00: Arterial Blood pH 7.420, Arterial Blood Partial Pressure CO2 37.2, Arterial Blood Partial Pressure O2 51.8L, Arterial Blood HCO3 23.6, Arterial Blood Oxygen Saturation 85.0*L, Arterial Blood Base Excess -0.6, Eliot Test Positive Height (Feet): 5 Height (Inches): 9.00 Weight (Pounds): 221 General Appearance: mild distress EENT: other - On BiPAP Cardiovascular: tachycardia Respiratory/Chest: decreased breath sounds Abdomen: distended Carlos Underwood MD Apr 14, 2020 13:58
--- NOTE | 2020-04-14 14:31 | Pulmonolgy Critical Care Note ---
Critical Care - Asmt/Plan Problems: (1) Acute respiratory failure (2) MORIAH (acute kidney injury) (3) Pneumonia due to COVID-19 virus (4) COVID-19 (5) Diabetes mellitus (6) History of CVA (cerebrovascular accident) (7) Rheumatoid arteritis (8) Methotrexate, detention, current use (9) Hx of heart artery stent (10) DNI (do not intubate) Respiratory: monitor respiratory rate, adjust FIO2, CXR Cardiac: continue to monitor HR/BP Renal: F/U I&O, keep IV fluid, increase IV fluid Gastrointestinal: hold feedings Endocrine: monitor blood sugar, continue sliding scale insulin Hematologic: transfuse if hgb<8.5 Neurologic: PRN Ativan, PRN Morphine, keep patient comfortable Affect: PRN ativan Prophylaxis: Protonix, Heparin Time Spent (Minutes): 40 Notes Reviewed: claim investigator, cardio, renal, ID Critical Care - Objective Last 24 Hour Vital Signs Date Time Temp Pulse Resp B/P (MAP) Pulse Ox O2 Delivery O2 Flow Rate FiO2 04/14/20 14:00 104 23 141/72 (95) 85 04/14/20 13:00 106 24 141/69 (93) 86 04/14/20 12:00 98.0 104 24 145/72 (96) 84 04/14/20 12:00 100 04/14/20 12:00 Bi-pap 04/14/20 12:00 106 04/14/20 11:00 106 27 141/69 (93) 88 04/14/20 10:38 104 32 84 100 04/14/20 10:00 107 29 127/60 (82) 86 04/14/20 09:00 101 23 129/67 (87) 85 04/14/20 08:00 Bi-pap 04/14/20 08:00 97.7 101 25 110/54 (72) 86 04/14/20 08:00 101 04/14/20 08:00 100 04/14/20 07:12 100 19 85 100 04/14/20 07:12 86 Bi-Pap 100 04/14/20 07:00 99 24 116/60 (78) 84 04/14/20 06:30 97 25 125/55 (78) 87 04/14/20 06:00 97 25 115/66 (82) 87 04/14/20 05:30 98 26 130/71 (90) 87 04/14/20 05:00 97 26 123/62 (82) 88 04/14/20 04:30 98 30 136/58 (84) 89 04/14/20 04:00 100 04/14/20 04:00 97 04/14/20 04:00 Bi-pap 04/14/20 04:00 99.0 98 26 118/63 (81) 91 04/14/20 03:00 99 28 117/60 (79) 92 04/14/20 02:58 102 29 91 100 04/14/20 02:00 101 28 113/59 (77) 83 04/14/20 01:30 102 28 118/64 (82) 85 04/14/20 01:00 101 29 124/55 (78) 87 04/14/20 00:30 102 29 122/58 (79) 86 04/14/20 00:00 102 04/14/20 00:00 100 04/14/20 00:00 Bi-pap 04/14/20 00:00 99.4 105 30 121/56 (77) 85 04/13/20 23:52 99.4 04/13/20 23:51 112 34 134/65 (88) 81 04/13/20 23:30 107 30 120/59 (79) 89 04/13/20 23:17 109 29 86 100 04/13/20 23:00 109 31 134/54 (80) 87 04/13/20 22:00 113 32 121/54 (76) 86 04/13/20 21:00 114 33 115/54 (74) 84 04/13/20 20:00 Bi-pap 04/13/20 20:00 99.4 118 33 118/51 (73) 87 04/13/20 20:00 110 04/13/20 20:00 100 04/13/20 19:10 80 Bi-Pap 100 04/13/20 19:10 120 34 80 100 04/13/20 19:00 120 34 115/51 (72) 79 04/13/20 18:00 125 36 124/88 (100) 68 04/13/20 17:05 98.7 04/13/20 17:03 123 37 122/48 (72) 74 04/13/20 16:30 125 37 103/52 (69) 74 04/13/20 16:13 100 04/13/20 16:13 124 04/13/20 16:00 126 39 129/51 (77) 76 04/13/20 16:00 Bi-pap 04/13/20 15:30 127 39 127/57 (80) 76 04/13/20 15:05 128 40 85 100 04/13/20 15:00 128 39 132/60 (84) 76 04/13/20 14:30 125 39 129/55 (79) 80 Status: obtunded Condition: critical, grave HEENT: atraumatic Neck: full ROM Lungs: chest wall tender Heart: HR/BP stable Abdomen: soft, non-tender Extremities: no C/C/E Micro: Microbiology Date/Time Source Procedure Growth Status 04/12/20 14:00 Urine,Clean Catch Urine Culture - Preliminary NO GROWTH AFTER 24 HOURS Resulted Accucheck: 249 Critical Care - Subjective ROS Limited/Unobtainable: Yes Condition: critical EKG Rhythm: Sinus Rhythm FI02: 100 Sputum Amount: None Fluids: NS 50 cc/hour Tube Feeding Amount: 0 I&O: Intake and Output 04/13/20 04/14/20 19:00 07:00 Intake Total 1041.1585 ml 1025 ml Output Total 455 ml 380 ml Balance 586.1585 ml 645 ml IV Total 1041.1585 ml 1025 ml Output Urine Total 455 ml 380 ml Labs: Laboratory Tests Test 04/13/20 23:42 04/14/20 05:30 04/14/20 07:00 POC Whole Blood Glucose Pending White Blood Count 6.1 K/UL (4.8-10.8) Red Blood Count 4.06 M/UL (4.70-6.10) L Hemoglobin 12.5 G/DL (14.2-18.0) L Hematocrit 38.4 % (42.0-52.0) L Mean Corpuscular Volume 95 FL (80-99) Mean Corpuscular Hemoglobin 30.7 PG (27.0-31.0) Mean Corpuscular Hemoglobin Concent 32.4 G/DL (32.0-36.0) Red Cell Distribution Width 14.4 % (11.6-14.8) Platelet Count 165 K/UL (150-450) Mean Platelet Volume 7.9 FL (6.5-10.1) Neutrophils (%) (Auto) 81.5 % (45.0-75.0) H Lymphocytes (%) (Auto) 6.1 % (20.0-45.0) L Monocytes (%) (Auto) 11.4 % (1.0-10.0) H Eosinophils (%) (Auto) 0.0 % (0.0-3.0) Basophils (%) (Auto) 1.0 % (0.0-2.0) Sodium Level 144 MMOL/L (136-145) Potassium Level 4.2 MMOL/L (3.5-5.1) Chloride Level 107 MMOL/L (98-107) Carbon Dioxide Level 28 MMOL/L (21-32) Anion Gap 9 mmol/L (5-15) Blood Urea Nitrogen 81 mg/dL (7-18) H Creatinine 1.7 MG/DL (0.55-1.30) H Estimat Glomerular Filtration Rate 40.2 mL/min (>60) Glucose Level 265 MG/DL (74-106) #H Uric Acid 10.2 MG/DL (2.6-7.2) H Calcium Level 7.9 MG/DL (8.5-10.1) L Phosphorus Level 3.0 MG/DL (2.5-4.9) Magnesium Level 2.5 MG/DL (1.8-2.4) H Total Bilirubin 0.4 MG/DL (0.2-1.0) Direct Bilirubin 0.2 MG/DL (0.0-0.3) Gamma Glutamyl Transpeptidase 31 U/L (5-85) Aspartate Amino Transf (AST/SGOT) 45 U/L (15-37) H Alanine Aminotransferase (ALT/SGPT) 29 U/L (12-78) Alkaline Phosphatase 57 U/L (46-116) Total Creatine Kinase 51 U/L (26-308) C-Reactive Protein, Quantitative 35.3 mg/dL (0.00-0.90) H Pro-B-Type Natriuretic Peptide 660 pg/mL (0-125) H Total Protein 7.0 G/DL (6.4-8.2) Albumin 2.4 G/DL (3.4-5.0) L Globulin 4.6 g/dL Albumin/Globulin Ratio 0.5 (1.0-2.7) L Arterial Blood pH 7.420 (7.350-7.450) Arterial Blood Partial Pressure CO2 37.2 mmHg (35.0-45.0) Arterial Blood Partial Pressure O2 51.8 mmHg (75.0-100.0) L Arterial Blood HCO3 23.6 mmol/L (22.0-26.0) Arterial Blood Oxygen Saturation 85.0 % (95-100) *L Arterial Blood Base Excess -0.6 (-2-2) Eliot Test Positive Deidre Chamorro MD Apr 14, 2020 14:31
[2020-04-14] MEDS ORDERED: 1/2 NS 1000ml IV ONE (18:30)
[2020-04-14] MEDS: LORazepam Inj 2mg/ml 1ml IV PRN (19:45)
[2020-04-14] MEDS: Remdesivir 100mg 100 MG in NS 230 ML IV SCH (20:43)
[2020-04-14] MEDS: Azithromycin 250 MG in NS 275 ML IV SCH (22:11)
[2020-04-14] MEDS: Morphine Sulfate 2mg/ml Inj(IV/IM USE ONLY) IVP PRN (22:38)
[2020-04-15] VITALS (15 sets, daily range): BP systolic 52–149; BP diastolic 28–82
[2020-04-15] MEDS: NovoLOG Insulin Flexpen SUBQ SCH ×4 (00:04→04:56)
[2020-04-15] MEDS: LORazepam Inj 2mg/ml 1ml IV PRN (01:25)
[2020-04-15] MEDS: Morphine Sulfate 2mg/ml Inj(IV/IM USE ONLY) IVP PRN (03:31)
--- NOTE | 2020-04-15 16:15 | Consultation ---
DATE OF CONSULTATION: 04/12/2020 NOTE: INCOMPLETE DICTATION CARDIAC CONSULTATION CONSULTING PHYSICIAN: Romeo Thomas MD. REFERRING PHYSICIAN: Deidre Chamorro MD. REASON FOR REFERRAL: Atrial fibrillation with rapid ventricular response. HISTORY OF PRESENT ILLNESS: This is a very unfortunate 70-year-old gentleman with history of multiple medical problems as delineated below. The patient has been diagnosed recently with COVID-19, diagnosis was made on 04/05/2020, has been seen at [facility] where he was eventually discharged to a SNF capable of handling COVID patients. The patient was noted to have increasing shortness of breath, more fatigue, and coughing. No fevers were reported. The patient was brought to the emergency room here at [facility]. He absolutely does not want to be intubated at all. He was admitted to the hospital, subsequently developed atrial fibrillation with rapid ventricular response. The patient did not have an IV in place unfortunately at the time of transfer to the intensive care unit and I was notified, discussed the case with nursing staff. Instructions were given to administer some IV amiodarone, this apparently was effective. On my arrival, he remains on a BiPAP machine. PAST MEDICAL HISTORY: Positive for history of hospitalizations at [facility] in October of this year. He has a history of diabetes type 2, coronary artery disease, hypertension, history of stent placement. Chest pain was felt to be secondary to musculoskeletal causes, obesity as well. He has apparently history of gastroesophageal reflux disease as well as CVA on prior occasions according to [facility] records. The details of his coronary artery disease is really unknown. It is known that he apparently had some kind of intervention. SOCIAL HISTORY: He is a former smoker. He drinks alcohol every 3 or 4 times a year. No drug. Romeo Thomas M.D. DR: Kate JOB#: [id number] CC:
--- NOTE | 2020-04-18 20:51 | Discharge Summary ---
Discharge Summary Discharge Summary _ DATE OF ADMISSION: 04/11/2020 DATE OF DISCHARGE: 04/15/2020 BRIEF SUMMARY: Patient is an unfortunate 70-year-old male with history of diabetes mellitus, hypertension, CVA, CAD status post stent, COVID positive, presented to ED from detention for evaluation of shortness of breath. Patient was hypoxic in the mid 80s and had increased work of breathing. He presented to ED in respiratory distress. In the emergency department, patient did not want intubation. He was given high flow oxygenation. ABG showed pH of 7.3, PCO2 30, HCO3 14. O2 80. Blood work did not show any leukocytosis. Hemoglobin and hematocrit were stable. D-dimer was elevated to 4.2. Ferritin 476. Lactic acid 2.7. Lactate dehydrogenase 595. CRP 41. Sodium was 131 and potassium was 5.0. Chest x-ray showed bilateral opacities. Patient was admitted for COVID pneumonia. He was placed on isolation. Patient had acute respiratory failure and was placed on BiPAP. He was started empirically on ceftriaxone and azithromycin. He was given Decadron. He was eventually started on Remdesevir. He was given Lovenox for DVT prophylaxis. Kidney function decline. Kidney injury multifactorial. He was given IV hydration. Patient had an episode of atrial fibrillation. He was given IV amiodarone and converted to sinus rhythm. He was continued on aspirin. He was placed on amiodarone drip. Patient is in respiratory distress and requested not to be intubated. He was also taken off his BiPAP. Patient has history of diabetes. He was given combination of Levemir and NovoLog. Patient had low TSH possibly due to steroid effect. CODE STATUS was changed to DNR per patient request. He was given morphine for comfort. Patient eventually . FINAL DIAGNOSES: COVID-19 pneumonia Acute respiratory failure Atrial fibrillation with RVR Lactic acidosis Thrombocytopenia Acute kidney injury Elevated liver enzymes Hyperlipidemia Obesity Hypertension by history Diabetes mellitus Rheumatoid arthritis History of cardiac stent DNR DISPOSITION: Patient . I have been assigned to complete a discharge summary on this account, I was not involved with the patient's management.--SUSAN Mcleod Jacqueline Robles NP Apr 18, 2020 20:51
== END 2020-04-15 05:35 | disposition expired | DRG 177 ==
LOC: EDBD 12:54 → EDBEDREQ 13:11 → EMR 13:26 → 2W 13:33 → EDBEDREQSVC 13:49 → EDBEDREQ 13:49 → ICU 04-12 13:14
PROC: 5A09457 Assistance with Respiratory Ventilation, 24-96 Consecutive Hours, Continuous Positive Airway Pressure (ICD-10-PCS; principal; 2020-04-12)
DX: U07.1 COVID-19 (principal); J12.89 Other viral pneumonia; A41.89 Other specified sepsis; J96.01 Acute respiratory failure with hypoxia; N17.9 Acute kidney failure, unspecified; E87.2 Acidosis; I48.91 Unspecified atrial fibrillation; E11.9 Type 2 diabetes mellitus without complications; I25.10 Atherosclerotic heart disease of native coronary artery without angina pectoris; Z51.5 Encounter for palliative care; Z66 Do not resuscitate; E11.65 Type 2 diabetes mellitus with hyperglycemia; Z88.6 Allergy status to analgesic agent; Z88.0 Allergy status to penicillin; Z88.2 Allergy status to sulfonamides; Z95.5 Presence of coronary angioplasty implant and graft; I10 Essential (primary) hypertension; Z79.82 Long term (current) use of aspirin; Z79.4 Long term (current) use of insulin; D69.6 Thrombocytopenia, unspecified; L40.50 Arthropathic psoriasis, unspecified; K21.9 Gastro-esophageal reflux disease without esophagitis; M06.9 Rheumatoid arthritis, unspecified; E78.5 Hyperlipidemia, unspecified; E66.9 Obesity, unspecified
CPT/HCPCS: 36415; 36600; 71045; 80053; 80061; 80069; 81003; 82043; 82248; 82550; 82553; 82607; 82728; 82746; 82803; 82962; 82977; 83036; 83540; 83550; 83605; 83615; 83735; 83880; 83935; 84100; 84300; 84443; 84484; 84550; 85007; 85025; 85379; 85384; 85610; 85730; 86140; 86703; 86705; 86709; 86803; 87040; 87081; 87086; 87340; 89050; 93306; 96365; 96375; 99291; J1815; J7030; S5561; U0002